=== PATIENT | male | born 1990 | race Caucasian/White ===

== ENCOUNTER 2022-03-24 16:40 | Inpatient (IN) | payer BC ==
[~2022-03-24] VITALS: Ht 180.3 cm; Wt 155.5 kg
[2022-03-24 17:30] LABS: BASO # 0.1 10^3/uL (0.0-0.2); BASO % 0.4 % (0.0-1.0); EOS # 0.1 10^3/uL (0.0-0.5); EOS % 0.2 % (0.0-3.0); HEMATOCRIT 28.7 % (42.0-52.0); HEMOGLOBIN 10.2 g/dl (13.5-17.5); LYMPH # 2.6 10^3/uL (1.5-5.0); LYMPH % 7.2 % (24.0-44.0); MEAN CORPUSCULAR HEMOGLOBIN 35.5 pg (27.0-33.0); MEAN CORPUSCULAR HGB CONC 35.5 g/dl (32.0-36.5); MONO % 5.6 % (2.0-8.0); NEUTROPHILS # 29.6 10^3/uL (1.5-8.5); NEUTROPHILS % 83.3 % (36.0-66.0); PLATELET COUNT, AUTOMATED 198 10^3/uL (150-450); RED BLOOD COUNT 2.87 10^6/uL (4.30-6.10)
[2022-03-24 17:43] LABS: INR 1.39; PROTHROMBIN TIME 17.5 SECONDS (12.7-14.5)
[2022-03-24 17:44] LABS: PARTIAL THROMBOPLASTIN TIME 43.3 SECONDS (25.9-37.0)
[2022-03-24 17:54] LABS: WHITE BLOOD COUNT 35.5 10^3/uL (4.0-10.0)
[2022-03-24 18:02] LABS: ALBUMIN 2.3 GM/DL (3.2-5.2); ALT/SGPT 215 U/L (12-78); BILIRUBIN,DIRECT 9.2 MG/DL (0.0-0.2); BILIRUBIN,TOTAL 10.9 MG/DL (0.2-1.0); BLOOD UREA NITROGEN 22 MG/DL (7-18); CALCIUM LEVEL 8.6 MG/DL (8.5-10.1); CARBON DIOXIDE LEVEL 24 MEQ/L (21-32); CHLORIDE LEVEL 85 MEQ/L (98-107); CREATININE FOR GFR 0.89 MG/DL (0.70-1.30); GLOMERULAR FILTRATION RATE > 60.0 (>60); GLUCOSE, FASTING 122 MG/DL (70-100); LIPASE 313 U/L (73-393); SODIUM LEVEL 122 MEQ/L (136-145); TOTAL PROTEIN 6.4 GM/DL (6.4-8.2)
[2022-03-24] MEDS ORDERED: NS 1,000 ML IV ONE (18:10)
[2022-03-24] MEDS ORDERED: ISOVUE-370 76% 100ML VIAL As Ordered ONE (18:15)
[2022-03-24] MEDS ORDERED: HOME MED LIST COMPLETE! XX SCH (19:20)
[2022-03-24 21:37] LABS: RSV AMPLIFICATION NEGATIVE (NEGATIVE)
[2022-03-24] MEDS ORDERED: LORazepam 2 MG TAB PO PRN (22:20)
[2022-03-24 23:00] VITALS: BP 135/62
[2022-03-24 23:16] LABS: OSMOLALITY SERUM 261 MOSM/KG (275-295)
[2022-03-24] MEDS: NS 1,000 ML IV SCH (23:26)
[2022-03-24] MEDS: THIAMINE 100 MG TAB PO SCH (23:26)
[2022-03-24 23:43] LABS: FERRITIN 2081 NG/ML (26-388); IRON (FE) 89 UG/DL (65-175); MAGNESIUM LEVEL 2.4 MG/DL (1.8-2.4); PERCENT SATURATION 114.1 % (19.7-50.0); TOTAL IRON BINDING CAPACITY 78 UG/DL (250-450)
[2022-03-25] VITALS (7 sets, daily range): BP systolic 111–130; BP diastolic 54–67
[2022-03-25 00:29] LABS: BLOOD UREA NITROGEN 24 MG/DL (7-18); CALCIUM LEVEL 7.7 MG/DL (8.5-10.1); CARBON DIOXIDE LEVEL 26 MEQ/L (21-32); CHLORIDE LEVEL 84 MEQ/L (98-107); CREATININE FOR GFR 0.95 MG/DL (0.70-1.30); GLOMERULAR FILTRATION RATE > 60.0 (>60); GLUCOSE, FASTING 107 MG/DL (70-100); SODIUM LEVEL 121 MEQ/L (136-145)
[2022-03-25] MEDS ORDERED: LACTULOSE 20 GM/30 ML SYRUP UD PO ONE (01:00)
[2022-03-25] MEDS: PANTOPRAZOLE 40MG VIAL IV SCH ×2 (01:23→14:23)
[2022-03-25 02:48] LABS: ACETAMINOPHEN LEVEL < 2.0 UG/ML (10.0-30.0)
[2022-03-25 03:43] LABS: BASO # 0.1 10^3/uL (0.0-0.2); BASO % 0.4 % (0.0-1.0); EOS # 0.1 10^3/uL (0.0-0.5); EOS % 0.4 % (0.0-3.0); HEMATOCRIT 27.1 % (42.0-52.0); HEMOGLOBIN 9.6 g/dl (13.5-17.5); LYMPH % 9.3 % (24.0-44.0); MEAN CORPUSCULAR HEMOGLOBIN 35.6 pg (27.0-33.0); MEAN CORPUSCULAR HGB CONC 35.4 g/dl (32.0-36.5); MEAN CORPUSCULAR VOLUME 100.4 fl (80.0-96.0); MONO % 5.4 % (2.0-8.0); NEUTROPHILS # 26.2 10^3/uL (1.5-8.5); NEUTROPHILS % 81.3 % (36.0-66.0); PLATELET COUNT, AUTOMATED 163 10^3/uL (150-450)
[2022-03-25 03:46] LABS: MONO # 1.7 10^3/uL (0.0-0.8); WHITE BLOOD COUNT 32.2 10^3/uL (4.0-10.0)
[2022-03-25 03:57] LABS: INR 1.43; PROTHROMBIN TIME 17.9 SECONDS (12.7-14.5)
[2022-03-25 03:58] LABS: PARTIAL THROMBOPLASTIN TIME 44.9 SECONDS (25.9-37.0)
[2022-03-25 04:07] LABS: ALBUMIN 1.9 GM/DL (3.2-5.2); ALT/SGPT 190 U/L (12-78); BILIRUBIN,TOTAL 9.4 MG/DL (0.2-1.0); BLOOD UREA NITROGEN 24 MG/DL (7-18); CALCIUM LEVEL 7.9 MG/DL (8.5-10.1); CARBON DIOXIDE LEVEL 28 MEQ/L (21-32); CHLORIDE LEVEL 87 MEQ/L (98-107); CREATININE FOR GFR 0.79 MG/DL (0.70-1.30); GLOMERULAR FILTRATION RATE > 60.0 (>60); GLUCOSE, FASTING 96 MG/DL (70-100); POTASSIUM SERUM 4.8 MEQ/L (3.5-5.1); SODIUM LEVEL 124 MEQ/L (136-145)
[2022-03-25 04:08] LABS: LIPASE 346 U/L (73-393)
[2022-03-25 08:23] LABS: BLOOD UREA NITROGEN 24 MG/DL (7-18); CALCIUM LEVEL 8.4 MG/DL (8.5-10.1); CARBON DIOXIDE LEVEL 27 MEQ/L (21-32); CHLORIDE LEVEL 86 MEQ/L (98-107); CREATININE FOR GFR 0.69 MG/DL (0.70-1.30); GLOMERULAR FILTRATION RATE > 60.0 (>60); GLUCOSE, FASTING 98 MG/DL (70-100); POTASSIUM SERUM 4.5 MEQ/L (3.5-5.1); SODIUM LEVEL 122 MEQ/L (136-145)
[2022-03-25] MEDS: THIAMINE 100 MG TAB PO SCH ×2 (09:45→21:41)
[2022-03-25] MEDS: FOLIC ACID 1 MG TAB PO SCH (09:45)
[2022-03-25] MEDS: MULTIVITAMINS/MINERALS THERAP 1 TAB PO SCH (09:45)
[2022-03-25 10:05] LABS: FOLATE 20.9 NG/ML (>5.4)
[2022-03-25 10:15] LABS: HEPATITIS B SURFACE ANTIGEN NEGATIVE (NEGATIVE)
[2022-03-25 10:43] LABS: HEPATITIS C VIRUS ABY INDEX 0.1 INDEX (<0.8)
[2022-03-25 10:44] LABS: HEPATITIS B CORE ANTIBODY IGM NEGATIVE (NEGATIVE)
[2022-03-25] MEDS: NS 1,000 ML IV SCH (11:44)
[2022-03-25 12:07] LABS: BASO # 0.1 10^3/uL (0.0-0.2); BASO % 0.3 % (0.0-1.0); EOS # 0.1 10^3/uL (0.0-0.5); EOS % 0.2 % (0.0-3.0); HEMATOCRIT 28.9 % (42.0-52.0); HEMOGLOBIN 10.1 g/dl (13.5-17.5); LYMPH # 1.8 10^3/uL (1.5-5.0); LYMPH % 5.5 % (24.0-44.0); MEAN CORPUSCULAR HEMOGLOBIN 35.3 pg (27.0-33.0); MEAN CORPUSCULAR HGB CONC 34.9 g/dl (32.0-36.5); MONO # 1.2 10^3/uL (0.0-0.8); MONO % 3.8 % (2.0-8.0); NEUTROPHILS # 27.7 10^3/uL (1.5-8.5); NEUTROPHILS % 86.3 % (36.0-66.0); PLATELET COUNT, AUTOMATED 177 10^3/uL (150-450); RED BLOOD COUNT 2.86 10^6/uL (4.30-6.10)
[2022-03-25 12:10] LABS: WHITE BLOOD COUNT 32.1 10^3/uL (4.0-10.0)
[2022-03-25 12:24] LABS: INR 1.43; PROTHROMBIN TIME 17.9 SECONDS (12.7-14.5)
[2022-03-25 12:25] LABS: PARTIAL THROMBOPLASTIN TIME 41.7 SECONDS (25.9-37.0)
[2022-03-25 12:26] LABS: BLOOD UREA NITROGEN 24 MG/DL (7-18); CALCIUM LEVEL 8.6 MG/DL (8.5-10.1); CARBON DIOXIDE LEVEL 29 MEQ/L (21-32); CHLORIDE LEVEL 86 MEQ/L (98-107); CREATININE FOR GFR 0.72 MG/DL (0.70-1.30); GLOMERULAR FILTRATION RATE > 60.0 (>60); GLUCOSE, FASTING 88 MG/DL (70-100); POTASSIUM SERUM 4.8 MEQ/L (3.5-5.1); SODIUM LEVEL 124 MEQ/L (136-145)
[2022-03-25 12:35] LABS: ALBUMIN 2.1 GM/DL (3.2-5.2); ALT/SGPT 210 U/L (12-78); BILIRUBIN,TOTAL 10.4 MG/DL (0.2-1.0); BLOOD UREA NITROGEN 24 MG/DL (7-18); CALCIUM LEVEL 8.8 MG/DL (8.5-10.1); CARBON DIOXIDE LEVEL 30 MEQ/L (21-32); CHLORIDE LEVEL 86 MEQ/L (98-107); CREATININE FOR GFR 0.68 MG/DL (0.70-1.30); GLOMERULAR FILTRATION RATE > 60.0 (>60); GLUCOSE, FASTING 91 MG/DL (70-100); SODIUM LEVEL 125 MEQ/L (136-145); TOTAL PROTEIN 5.7 GM/DL (6.4-8.2)
[2022-03-25 13:06] LABS: MONO SCRN NEGATIVE (NEGATIVE)
[2022-03-25 13:24] LABS: HIV 1&2 SCREEN CENTAUR NEGATIVE (NEGATIVE)
[2022-03-25 17:24] LABS: ALT/SGPT 198 U/L (12-78); BILIRUBIN,TOTAL 9.4 MG/DL (0.2-1.0); BLOOD UREA NITROGEN 24 MG/DL (7-18); CALCIUM LEVEL 7.8 MG/DL (8.5-10.1); CARBON DIOXIDE LEVEL 28 MEQ/L (21-32); CHLORIDE LEVEL 86 MEQ/L (98-107); CHOLESTEROL LEVEL 111 MG/DL (<200); CREATININE FOR GFR 0.85 MG/DL (0.70-1.30); GLOMERULAR FILTRATION RATE > 60.0 (>60); GLUCOSE, FASTING 116 MG/DL (70-100); HDL CHOLESTEROL 8 MG/DL (>40); POTASSIUM SERUM 4.9 MEQ/L (3.5-5.1); SODIUM LEVEL 123 MEQ/L (136-145); TRIGLYCERIDES LEVEL 204 MG/DL (<150)
[2022-03-25 17:25] LABS: ALBUMIN 1.9 GM/DL (3.2-5.2); CHOLESTEROL RISK RATIO 13.875 (<5); LDL CHOLESTEROL 62 MG/DL (<100); NON-HDL-C 103 MG/DL; TOTAL PROTEIN 5.9 GM/DL (6.4-8.2)
[2022-03-26] MEDS: NS 1,000 ML IV SCH (00:23)
[2022-03-26] MEDS: PANTOPRAZOLE 40MG VIAL IV SCH ×2 (02:06→14:13)
[2022-03-26 03:45] LABS: BASO # 0.1 10^3/uL (0.0-0.2); BASO % 0.4 % (0.0-1.0); EOS # 0.2 10^3/uL (0.0-0.5); EOS % 0.5 % (0.0-3.0); HEMATOCRIT 25.7 % (42.0-52.0); HEMOGLOBIN 9.2 g/dl (13.5-17.5); LYMPH # 3.2 10^3/uL (1.5-5.0); LYMPH % 8.7 % (24.0-44.0); MEAN CORPUSCULAR HEMOGLOBIN 35.7 pg (27.0-33.0); MEAN CORPUSCULAR HGB CONC 35.8 g/dl (32.0-36.5); MEAN CORPUSCULAR VOLUME 99.6 fl (80.0-96.0); MONO % 5.5 % (2.0-8.0); NEUTROPHILS % 81.7 % (36.0-66.0); PLATELET COUNT, AUTOMATED 170 10^3/uL (150-450); RED BLOOD COUNT 2.58 10^6/uL (4.30-6.10)
[2022-03-26 03:46] VITALS: BP 116/60
[2022-03-26 03:51] LABS: WHITE BLOOD COUNT 36.7 10^3/uL (4.0-10.0)
[2022-03-26 04:09] LABS: ALBUMIN 1.9 GM/DL (3.2-5.2); ALT/SGPT 191 U/L (12-78); BILIRUBIN,TOTAL 9.3 MG/DL (0.2-1.0); BLOOD UREA NITROGEN 22 MG/DL (7-18); CALCIUM LEVEL 7.5 MG/DL (8.5-10.1); CARBON DIOXIDE LEVEL 28 MEQ/L (21-32); CHLORIDE LEVEL 87 MEQ/L (98-107); CREATININE FOR GFR 0.69 MG/DL (0.70-1.30); GLOMERULAR FILTRATION RATE > 60.0 (>60); GLUCOSE, FASTING 106 MG/DL (70-100); MAGNESIUM LEVEL 2.7 MG/DL (1.8-2.4); POTASSIUM SERUM 4.4 MEQ/L (3.5-5.1); SODIUM LEVEL 123 MEQ/L (136-145); TOTAL PROTEIN 5.2 GM/DL (6.4-8.2)
[2022-03-26 07:15] VITALS: BP 110/53
[2022-03-26 08:02] LABS: BILIRUBIN,DIRECT 8.2 MG/DL (0.0-0.2)
[2022-03-26] MEDS: HEPARIN SOD (PORCINE) 5000UNITS/ML 1ML VIAL/SYRINGE SQ SCH ×3 (08:55→21:07)
[2022-03-26] MEDS: FOLIC ACID 1 MG TAB PO SCH (08:56)
[2022-03-26] MEDS: predniSONE 20 MG TAB PO SCH (08:56)
[2022-03-26] MEDS: MULTIVITAMINS/MINERALS THERAP 1 TAB PO SCH (08:56)
[2022-03-26] MEDS: THIAMINE 100 MG TAB PO SCH ×2 (08:56→21:07)
[2022-03-26 14:08] LABS: EBV VIRAL CAPSID AG IgM <36.0 U/mL (0.0-35.9)
[2022-03-26 15:10] LABS: VITAMIN B12 LEVEL > 2000 PG/ML (247-911)
[2022-03-26 15:49] VITALS: BP 117/61
[2022-03-26] MEDS ORDERED: LACTULOSE 20 GM/30 ML SYRUP UD PO ONE (18:40)
[2022-03-26 20:00] VITALS: BP 115/56
[2022-03-26 22:00] VITALS: BP 115/56
[2022-03-27] VITALS (7 sets, daily range): BP systolic 116–133; BP diastolic 56–76
[2022-03-27] MEDS: PANTOPRAZOLE 40MG VIAL IV SCH ×2 (01:20→15:01)
[2022-03-27 06:08] LABS: HEMATOCRIT 26.7 % (42.0-52.0); HEMOGLOBIN 9.3 g/dl (13.5-17.5); MEAN CORPUSCULAR HEMOGLOBIN 35.1 pg (27.0-33.0); MEAN CORPUSCULAR HGB CONC 34.8 g/dl (32.0-36.5); MEAN CORPUSCULAR VOLUME 100.8 fl (80.0-96.0); PLATELET COUNT, AUTOMATED 200 10^3/uL (150-450); RED BLOOD COUNT 2.65 10^6/uL (4.30-6.10)
[2022-03-27 06:23] LABS: WHITE BLOOD COUNT 35.3 10^3/uL (4.0-10.0)
[2022-03-27] MEDS: HEPARIN SOD (PORCINE) 5000UNITS/ML 1ML VIAL/SYRINGE SQ SCH (06:27)
[2022-03-27 06:28] LABS: ALBUMIN 1.9 GM/DL (3.2-5.2); ALT/SGPT 199 U/L (12-78); BILIRUBIN,TOTAL 8.2 MG/DL (0.2-1.0); BLOOD UREA NITROGEN 22 MG/DL (7-18); CALCIUM LEVEL 7.9 MG/DL (8.5-10.1); CARBON DIOXIDE LEVEL 29 MEQ/L (21-32); CHLORIDE LEVEL 87 MEQ/L (98-107); CREATININE FOR GFR 0.85 MG/DL (0.70-1.30); GLOMERULAR FILTRATION RATE > 60.0 (>60); GLUCOSE, FASTING 99 MG/DL (70-100); POTASSIUM SERUM 4.3 MEQ/L (3.5-5.1); SODIUM LEVEL 122 MEQ/L (136-145); TOTAL PROTEIN 5.9 GM/DL (6.4-8.2)
[2022-03-27 06:43] LABS: ANISOCYTOSIS 2+; BASOPHILS 1 % (0-1); LYMPHOCYTES 10 % (16-44); METAMYELOCYTES 1 % (0-0); MONOCYTES 2 % (0-5); NEUTROPHILS 80 % (28-66); PLATELET ESTIMATE NORMAL (NORMAL)
[2022-03-27 08:24] LABS: BILIRUBIN,DIRECT 6.9 MG/DL (0.0-0.2)
[2022-03-27] MEDS: predniSONE 20 MG TAB PO SCH (09:43)
[2022-03-27] MEDS: FOLIC ACID 1 MG TAB PO SCH (09:43)
[2022-03-27] MEDS: THIAMINE 100 MG TAB PO SCH (09:43)
[2022-03-27] MEDS: MULTIVITAMINS/MINERALS THERAP 1 TAB PO SCH (09:43)
[2022-03-27] MEDS ORDERED: PROHANCE 279.3MG/ML 5ML VIAL As Ordered ONE (10:53)
[2022-03-27] MEDS ORDERED: PROHANCE 279.3MG/ML 15ML VIAL As Ordered ONE (10:53)
[2022-03-27] MEDS ORDERED: HEPARIN DRIP 25,000 UNITS in IV 1 EA IV SCH (11:35)
[2022-03-27] MEDS ORDERED: HEPARIN SOD (PORCINE) 5000UNITS/ML 1ML VIAL/SYRINGE IV PRN ×2 (11:35→11:50)
[2022-03-27 12:33] LABS: HEMOGLOBIN A1c 5.2 %
[2022-03-27 12:45] LABS: D-DIMER QUANT 2380.52 ng/ml (<500)
[2022-03-27 13:29] LABS: PARTIAL THROMBOPLASTIN TIME 44.9 SECONDS (25.9-37.0)
[2022-03-27] MEDS: HEPARIN DRIP 25,000 UNITS in IV 1 EA IV SCH (14:00)
[2022-03-28] VITALS: BP 121/58
[2022-03-28] MEDS: PANTOPRAZOLE 40MG VIAL IV SCH ×2 (03:42→14:06)
[2022-03-28] MEDS: NICOTINE 14 MG/24 HR TRANSDERMAL TD PRN (03:42)
[2022-03-28 04:00] VITALS: BP 119/56
[2022-03-28 04:31] LABS: INR 1.49; PROTHROMBIN TIME 18.4 SECONDS (12.7-14.5)
[2022-03-28 04:32] LABS: PARTIAL THROMBOPLASTIN TIME 53.8 SECONDS (25.9-37.0)
[2022-03-28] MEDS: HEPARIN DRIP 25,000 UNITS in IV 1 EA IV SCH ×2 (07:27→23:21)
[2022-03-28 08:00] VITALS: BP 116/58
[2022-03-28] MEDS: predniSONE 20 MG TAB PO SCH (08:04)
[2022-03-28] MEDS: MULTIVITAMINS/MINERALS THERAP 1 TAB PO SCH (08:05)
[2022-03-28] MEDS: FOLIC ACID 1 MG TAB PO SCH (08:05)
[2022-03-28 08:37] LABS: HEMATOCRIT 28.9 % (42.0-52.0); HEMOGLOBIN 9.9 g/dl (13.5-17.5); MEAN CORPUSCULAR HEMOGLOBIN 35.4 pg (27.0-33.0); MEAN CORPUSCULAR HGB CONC 34.3 g/dl (32.0-36.5); MEAN CORPUSCULAR VOLUME 103.2 fl (80.0-96.0); PLATELET COUNT, AUTOMATED 253 10^3/uL (150-450)
[2022-03-28 08:38] LABS: ALBUMIN 2.1 GM/DL (3.2-5.2); ALT/SGPT 229 U/L (12-78); BILIRUBIN,TOTAL 8.4 MG/DL (0.2-1.0); BLOOD UREA NITROGEN 24 MG/DL (7-18); CALCIUM LEVEL 8.1 MG/DL (8.5-10.1); CARBON DIOXIDE LEVEL 25 MEQ/L (21-32); CHLORIDE LEVEL 91 MEQ/L (98-107); CREATININE FOR GFR 0.75 MG/DL (0.70-1.30); GLOMERULAR FILTRATION RATE > 60.0 (>60); GLUCOSE, FASTING 111 MG/DL (70-100); MAGNESIUM LEVEL 2.8 MG/DL (1.8-2.4); POTASSIUM SERUM 4.1 MEQ/L (3.5-5.1); SODIUM LEVEL 125 MEQ/L (136-145)
[2022-03-28 08:40] LABS: WHITE BLOOD COUNT 39.8 10^3/uL (4.0-10.0)
[2022-03-28 09:12] LABS: ANISOCYTOSIS 2+; EOSINOPHILS 1 % (0-3); LYMPHOCYTES 11 % (16-44); MONOCYTES 3 % (0-5); MYELOCYTES 1 % (0-0); NEUTROPHILS 82 % (28-66); PLATELET ESTIMATE NORMAL (NORMAL)
[2022-03-28 11:43] VITALS: BP 126/57
[2022-03-28 11:44] LABS: INR 1.58; PROTHROMBIN TIME 19.3 SECONDS (12.7-14.5)
[2022-03-28] MEDS: cefTRIAXone SOD 2 GM in D5W MINI-BAG PLUS 50 ML IV SCH (12:18)
[2022-03-28 15:42] VITALS: BP 123/56
[2022-03-28 20:00] VITALS: BP 120/55
[2022-03-29] VITALS: BP 119/57
[2022-03-29 05:23] VITALS: BP 124/55
[2022-03-29] MEDS: PANTOPRAZOLE 40MG VIAL IV SCH ×2 (05:33→14:46)
[2022-03-29] MEDS: NICOTINE 14 MG/24 HR TRANSDERMAL TD PRN (05:33)
[2022-03-29 07:57] LABS: HEMATOCRIT 25.5 % (42.0-52.0); HEMOGLOBIN 8.9 g/dl (13.5-17.5); MEAN CORPUSCULAR HEMOGLOBIN 35.7 pg (27.0-33.0); MEAN CORPUSCULAR HGB CONC 34.9 g/dl (32.0-36.5); MEAN CORPUSCULAR VOLUME 102.4 fl (80.0-96.0); PLATELET COUNT, AUTOMATED 274 10^3/uL (150-450); RED BLOOD COUNT 2.49 10^6/uL (4.30-6.10)
[2022-03-29 08:03] LABS: WHITE BLOOD COUNT 33.4 10^3/uL (4.0-10.0)
[2022-03-29 08:07] LABS: INR 1.65; PROTHROMBIN TIME 19.9 SECONDS (12.7-14.5)
[2022-03-29 08:09] LABS: PARTIAL THROMBOPLASTIN TIME 73.3 SECONDS (25.9-37.0)
[2022-03-29 08:13] VITALS: BP 121/56
[2022-03-29 08:31] LABS: ATYPICAL LYMPH 1 % (0-5); EOSINOPHILS 2 % (0-3); LYMPHOCYTES 7 % (16-44); MONOCYTES 7 % (0-5); MYELOCYTES 1 % (0-0); NEUTROPHILS 77 % (28-66)
[2022-03-29 08:32] LABS: ALBUMIN 1.8 GM/DL (3.2-5.2); ALT/SGPT 206 U/L (12-78); BILIRUBIN,TOTAL 6.5 MG/DL (0.2-1.0); BLOOD UREA NITROGEN 27 MG/DL (7-18); CALCIUM LEVEL 7.9 MG/DL (8.5-10.1); CARBON DIOXIDE LEVEL 27 MEQ/L (21-32); CHLORIDE LEVEL 94 MEQ/L (98-107); CREATININE FOR GFR 0.74 MG/DL (0.70-1.30); GLOMERULAR FILTRATION RATE > 60.0 (>60); GLUCOSE, FASTING 103 MG/DL (70-100); MAGNESIUM LEVEL 2.9 MG/DL (1.8-2.4); POTASSIUM SERUM 3.8 MEQ/L (3.5-5.1); SODIUM LEVEL 129 MEQ/L (136-145); TOTAL PROTEIN 5.2 GM/DL (6.4-8.2)
[2022-03-29 08:33] LABS: STOMATOCYTES 3+; TARGET CELLS 1+
[2022-03-29 08:34] LABS: PLATELET ESTIMATE NORMAL (NORMAL)
[2022-03-29] MEDS: FOLIC ACID 1 MG TAB PO SCH (08:56)
[2022-03-29] MEDS: predniSONE 20 MG TAB PO SCH (08:57)
[2022-03-29] MEDS: MULTIVITAMINS/MINERALS THERAP 1 TAB PO SCH (08:57)
[2022-03-29 11:19] LABS: BILIRUBIN,DIRECT 5.9 MG/DL (0.0-0.2)
[2022-03-29] MEDS: cefTRIAXone SOD 2 GM in D5W MINI-BAG PLUS 50 ML IV SCH (11:20)
[2022-03-29 12:11] VITALS: BP 118/57
[2022-03-29 13:12] LABS: HEMOGLOBIN 9.2 g/dl (13.5-17.5)
[2022-03-29] MEDS: HEPARIN DRIP 25,000 UNITS in IV 1 EA IV SCH (14:56)
[2022-03-29 16:26] VITALS: BP 133/60
[2022-03-29 20:00] VITALS: BP 128/62
[2022-03-30] VITALS (7 sets, daily range): BP systolic 111–123; BP diastolic 53–68
[2022-03-30] MEDS: PANTOPRAZOLE 40MG VIAL IV SCH ×2 (02:39→13:23)
[2022-03-30 06:29] LABS: BASO # 0.1 10^3/uL (0.0-0.2); BASO % 0.2 % (0.0-1.0); EOS # 0.2 10^3/uL (0.0-0.5); EOS % 0.7 % (0.0-3.0); HEMATOCRIT 25.3 % (42.0-52.0); HEMOGLOBIN 8.7 g/dl (13.5-17.5); LYMPH # 3.6 10^3/uL (1.5-5.0); LYMPH % 11.1 % (24.0-44.0); MEAN CORPUSCULAR HEMOGLOBIN 34.5 pg (27.0-33.0); MEAN CORPUSCULAR HGB CONC 34.4 g/dl (32.0-36.5); MEAN CORPUSCULAR VOLUME 100.4 fl (80.0-96.0); MONO % 5.1 % (2.0-8.0); NEUTROPHILS # 25.6 10^3/uL (1.5-8.5); NEUTROPHILS % 79.5 % (36.0-66.0); PLATELET COUNT, AUTOMATED 336 10^3/uL (150-450); RED BLOOD COUNT 2.52 10^6/uL (4.30-6.10)
[2022-03-30] MEDS: HEPARIN DRIP 25,000 UNITS in IV 1 EA IV SCH ×2 (06:29→22:55)
[2022-03-30 06:52] LABS: ALBUMIN 1.8 GM/DL (3.2-5.2); ALT/SGPT 207 U/L (12-78); BILIRUBIN,TOTAL 5.9 MG/DL (0.2-1.0); BLOOD UREA NITROGEN 24 MG/DL (7-18); CALCIUM LEVEL 7.8 MG/DL (8.5-10.1); CARBON DIOXIDE LEVEL 26 MEQ/L (21-32); CHLORIDE LEVEL 96 MEQ/L (98-107); CREATININE FOR GFR 0.67 MG/DL (0.70-1.30); GLOMERULAR FILTRATION RATE > 60.0 (>60); GLUCOSE, FASTING 100 MG/DL (70-100); MAGNESIUM LEVEL 2.7 MG/DL (1.8-2.4); POTASSIUM SERUM 3.9 MEQ/L (3.5-5.1); SODIUM LEVEL 131 MEQ/L (136-145); TOTAL PROTEIN 5.2 GM/DL (6.4-8.2)
[2022-03-30 07:03] LABS: MONO # 1.7 10^3/uL (0.0-0.8); WHITE BLOOD COUNT 32.3 10^3/uL (4.0-10.0)
[2022-03-30 08:10] LABS: CMV QUANT DNA PCR, URINE Negative copies/mL (Negative)
[2022-03-30] MEDS: FOLIC ACID 1 MG TAB PO SCH (08:52)
[2022-03-30] MEDS: MULTIVITAMINS/MINERALS THERAP 1 TAB PO SCH (08:52)
[2022-03-30] MEDS: predniSONE 20 MG TAB PO SCH (08:52)
[2022-03-30] MEDS: cefTRIAXone SOD 2 GM in D5W MINI-BAG PLUS 50 ML IV SCH (11:23)
[2022-03-30 14:09] LABS: ANTI-MITOCHONDRIAL ANTIBODY <20.0 Units (0.0-20.0)
[2022-03-31] VITALS: BP 117/57
[2022-03-31] MEDS: PANTOPRAZOLE 40MG VIAL IV SCH ×2 (02:00→14:33)
[2022-03-31 04:00] VITALS: BP 125/60
[2022-03-31 06:01] LABS: BASO # 0.1 10^3/uL (0.0-0.2); BASO % 0.2 % (0.0-1.0); EOS # 0.3 10^3/uL (0.0-0.5); EOS % 0.9 % (0.0-3.0); HEMATOCRIT 27.2 % (42.0-52.0); HEMOGLOBIN 9.2 g/dl (13.5-17.5); LYMPH # 3.7 10^3/uL (1.5-5.0); LYMPH % 11.6 % (24.0-44.0); MEAN CORPUSCULAR HEMOGLOBIN 35.5 pg (27.0-33.0); MEAN CORPUSCULAR HGB CONC 33.8 g/dl (32.0-36.5); MONO % 5.2 % (2.0-8.0); NEUTROPHILS # 25.2 10^3/uL (1.5-8.5); NEUTROPHILS % 78.9 % (36.0-66.0); PLATELET COUNT, AUTOMATED 365 10^3/uL (150-450); RED BLOOD COUNT 2.59 10^6/uL (4.30-6.10)
[2022-03-31 06:10] LABS: MONO # 1.7 10^3/uL (0.0-0.8); WHITE BLOOD COUNT 31.9 10^3/uL (4.0-10.0)
[2022-03-31 06:29] LABS: ALBUMIN 1.9 GM/DL (3.2-5.2); ALT/SGPT 219 U/L (12-78); BILIRUBIN,TOTAL 5.7 MG/DL (0.2-1.0); BLOOD UREA NITROGEN 20 MG/DL (7-18); CALCIUM LEVEL 7.8 MG/DL (8.5-10.1); CARBON DIOXIDE LEVEL 29 MEQ/L (21-32); CHLORIDE LEVEL 99 MEQ/L (98-107); CREATININE FOR GFR 0.65 MG/DL (0.70-1.30); GLOMERULAR FILTRATION RATE > 60.0 (>60); GLUCOSE, FASTING 106 MG/DL (70-100); MAGNESIUM LEVEL 2.7 MG/DL (1.8-2.4); POTASSIUM SERUM 3.8 MEQ/L (3.5-5.1); SODIUM LEVEL 135 MEQ/L (136-145); TOTAL PROTEIN 5.4 GM/DL (6.4-8.2)
[2022-03-31 08:00] VITALS: BP 115/54
[2022-03-31] MEDS: MULTIVITAMINS/MINERALS THERAP 1 TAB PO SCH (08:44)
[2022-03-31] MEDS: FOLIC ACID 1 MG TAB PO SCH (08:44)
[2022-03-31] MEDS: predniSONE 20 MG TAB PO SCH (08:44)
[2022-03-31] MEDS: HEPARIN DRIP 25,000 UNITS in IV 1 EA IV SCH (10:35)
[2022-03-31] MEDS: cefTRIAXone SOD 2 GM in D5W MINI-BAG PLUS 50 ML IV SCH (11:42)
[2022-03-31 16:00] VITALS: BP 124/59
[2022-03-31 20:00] VITALS: BP 121/56
[2022-03-31] MEDS: APIXABAN 5 MG TAB (ELIQUIS) PO SCH (20:27)
[2022-04-01] MEDS: PANTOPRAZOLE 40MG VIAL IV SCH ×2 (01:35→13:50)
[2022-04-01 05:40] LABS: BASO % 0.1 % (0.0-1.0); EOS # 0.4 10^3/uL (0.0-0.5); EOS % 1.3 % (0.0-3.0); HEMOGLOBIN 9.3 g/dl (13.5-17.5); LYMPH # 3.3 10^3/uL (1.5-5.0); LYMPH % 11.7 % (24.0-44.0); MEAN CORPUSCULAR HEMOGLOBIN 34.6 pg (27.0-33.0); MEAN CORPUSCULAR HGB CONC 33.2 g/dl (32.0-36.5); MEAN CORPUSCULAR VOLUME 104.1 fl (80.0-96.0); MONO # 1.2 10^3/uL (0.0-0.8); MONO % 4.3 % (2.0-8.0); NEUTROPHILS # 22.9 10^3/uL (1.5-8.5); NEUTROPHILS % 80.8 % (36.0-66.0); PLATELET COUNT, AUTOMATED 395 10^3/uL (150-450); RED BLOOD COUNT 2.69 10^6/uL (4.30-6.10); WHITE BLOOD COUNT 28.3 10^3/uL (4.0-10.0)
[2022-04-01 06:00] VITALS: BP 121/57
[2022-04-01 06:04] LABS: ALBUMIN 1.8 GM/DL (3.2-5.2); ALT/SGPT 209 U/L (12-78); BILIRUBIN,TOTAL 5.4 MG/DL (0.2-1.0); BLOOD UREA NITROGEN 16 MG/DL (7-18); CALCIUM LEVEL 8.1 MG/DL (8.5-10.1); CARBON DIOXIDE LEVEL 27 MEQ/L (21-32); CHLORIDE LEVEL 97 MEQ/L (98-107); GLOMERULAR FILTRATION RATE > 60.0 (>60); GLUCOSE, FASTING 100 MG/DL (70-100); MAGNESIUM LEVEL 2.6 MG/DL (1.8-2.4); POTASSIUM SERUM 3.7 MEQ/L (3.5-5.1); SODIUM LEVEL 131 MEQ/L (136-145); TOTAL PROTEIN 5.9 GM/DL (6.4-8.2)
[2022-04-01] MEDS ORDERED: ELIQ5TAB PO (07:54)
[2022-04-01 07:57] VITALS: BP 105/53
[2022-04-01] MEDS: predniSONE 20 MG TAB PO SCH (08:03)
[2022-04-01] MEDS: FOLIC ACID 1 MG TAB PO SCH (08:03)
[2022-04-01] MEDS: APIXABAN 5 MG TAB (ELIQUIS) PO SCH (08:03)
[2022-04-01] MEDS: MULTIVITAMINS/MINERALS THERAP 1 TAB PO SCH (08:03)
[2022-04-01] MEDS ORDERED: SIMETHICONE 80MG CHEW TAB PO PRN (08:35)
[2022-04-01 09:43] LABS: DRVV SCREEN 50.1 SEC
[2022-04-01 09:45] LABS: PTT LUPUS TYPE ANTICOAG SCREEN 1.3 (0-1.2)
[2022-04-01 10:07] LABS: DRVV CONFIRM 46.7 SEC; LUPUS CONFIRM RATIO 1.2
[2022-04-01 10:08] LABS: NORMALIZED RATIO 1.08 (0.00-1.20)
[2022-04-01] MEDS ORDERED: SIME80TA16 PO (11:18)
[2022-04-01] MEDS ORDERED: FOLI1TAB11 PO (11:18)
[2022-04-01] MEDS ORDERED: VITMTA PO (11:18)
[2022-04-01] MEDS ORDERED: PANT40TA29 PO (11:18)
[2022-04-01 15:27] VITALS: BP 113/59
[2022-04-02 08:10] LABS: ANTI THROMBIN 3 ANTIGEN IMMUNO 55 % (72-124); ANTI THROMBIN 3 FUNCT ACTIVITY 68 % (75-135); BETA-2 GLYCOPROTEIN I ABY IGA <9 (0-25); BETA-2 GLYCOPROTEIN I ABY IGG <9 (0-20); BETA-2 GLYCOPROTEIN I ABY IGM <9 (0-32); CARDIOLIPIN IGA ANTIBODY <9 APL U/mL (0-11); CARDIOLIPIN IGG ANTIBODY <9 GPL U/mL (0-14); CARDIOLIPIN IGM ANTIBODY 15 MPL U/mL (0-12); PROTEIN C FUNCTIONAL ACTIVITY 63 % (73-180); PROTEIN S FUNCTIONAL ACTIVITY 104 % (63-140)
== END 2022-04-01 18:19 | disposition home or self-care (01) | DRG 280 ==
LOC: M ED 16:40 → M ED INP 22:19 → ENRESERV 22:44 → M PCU 23:01
PROVIDERS: ADMIT Internal Medicine; ATTEND Family Medicine
DX: K70.10 Alcoholic hepatitis without ascites (principal); I81 Portal vein thrombosis; E87.2 Acidosis; R65.10 Systemic inflammatory response syndrome (SIRS) of non-infectious origin without acute organ dysfunction; K76.6 Portal hypertension; E87.1 Hypo-osmolality and hyponatremia; Z68.42 Body mass index [BMI] 45.0-49.9, adult; D51.3 Other dietary vitamin B12 deficiency anemia; R16.1 Splenomegaly, not elsewhere classified; E66.9 Obesity, unspecified; K59.00 Constipation, unspecified; D72.829 Elevated white blood cell count, unspecified; Z20.822 Contact with and (suspected) exposure to COVID-19; K76.0 Fatty (change of) liver, not elsewhere classified; F10.10 Alcohol abuse, uncomplicated

== ENCOUNTER → 2022-04-19 | Outpatient (REF) | payer BC ==
[~2022-04-19] MED LIST: ELIQ5TAB PO; FOLI1TAB11 PO; PANT40TA29 PO; SIME80TA16 PO; VITMTA PO
[2022-04-19 12:45] LABS: INR 1.93; PROTHROMBIN TIME 22.5 SECONDS (12.7-14.5)
[2022-04-19 19:24] LABS: BASOPHILS 2 % (0-1); LYMPHOCYTES 4 % (16-44); MONOCYTES 6 % (0-5); NEUTROPHILS 85 % (28-66)
[2022-04-19 19:28] LABS: ANISOCYTOSIS 2+; OVALOCYTES 2+; PLATELET ESTIMATE NORMAL (NORMAL); POIKILOCYTOSIS 2+
== END ==
LOC: M LAB REF 12:09
PROVIDERS: ATTEND Internal Medicine
DX: Z51.81 Encounter for therapeutic drug level monitoring (principal); D72.9 Disorder of white blood cells, unspecified

== ENCOUNTER → 2022-05-10 | Outpatient (CLI) | payer BC | LOC: M RAD 07:45 | PROVIDERS: ATTEND Internal Medicine Gastroenterology | DX: K70.9 Alcoholic liver disease, unspecified (principal); I81 Portal vein thrombosis ==

== ENCOUNTER 2023-03-31 09:58 | Inpatient (IN) | payer BC ==
[~2023-03-31] VITALS: Ht 180.3 cm; Wt 120.8 kg
[~2023-03-31 09:58] MED LIST changes: +B-10TAB2 PO; +CVS1CHW13 PO; +L. A1CAP PO; +LASI20TA3 PO; +SPIR-10 PO; +TRAZ-186 PO; +TRAZ-252; +VITA200048 PO
[2023-03-31] MEDS ORDERED: NS 1,000 ML IV ONE (10:20)
[2023-03-31] MEDS ORDERED: VITMTA PO (10:53)
[2023-03-31] MEDS ORDERED: HOME MED LIST COMPLETE! XX SCH (11:00)
[2023-03-31 11:35] LABS: RSV AMPLIFICATION NEGATIVE (NEGATIVE)
[2023-03-31 12:12] LABS: BASO % 0.5 % (0.0-1.0); EOS # 0.1 10^3/uL (0.0-0.5); EOS % 0.8 % (0.0-3.0); HEMOGLOBIN 12.3 g/dl (13.5-17.5); LYMPH # 0.8 10^3/uL (1.5-5.0); LYMPH % 10.5 % (24.0-44.0); MEAN CORPUSCULAR HEMOGLOBIN 33.8 pg (27.0-33.0); MEAN CORPUSCULAR HGB CONC 34.2 g/dl (32.0-36.5); MEAN CORPUSCULAR VOLUME 98.9 fl (80.0-96.0); MONO # 0.6 10^3/uL (0.0-0.8); MONO % 8.4 % (2.0-8.0); NEUTROPHILS % 79.3 % (36.0-66.0); RED BLOOD COUNT 3.64 10^6/uL (4.30-6.10); WHITE BLOOD COUNT 7.6 10^3/uL (4.0-10.0)
[2023-03-31 12:31] LABS: INR 1.54; PROTHROMBIN TIME 18.8 SECONDS (12.5-14.5)
[2023-03-31 12:32] LABS: PARTIAL THROMBOPLASTIN TIME 35.4 SECONDS (24.8-34.2)
[2023-03-31 12:42] LABS: LIPASE 245 U/L (12-53)
[2023-03-31 12:44] LABS: PLATELET COUNT, AUTOMATED 75 10^3/uL (150-450)
[2023-03-31 12:48] LABS: FERRITIN 868.8 NG/ML (10.5-307.3)
[2023-03-31 12:50] LABS: ALBUMIN 3.3 G/DL (3.2-5.2); ALKALINE PHOSPHATASE 182 U/L (46-116); ALT/SGPT 79 U/L (7.0-40); AST/SGOT 191 U/L (<34); BILIRUBIN,DIRECT 9.5 MG/DL (<0.4); BILIRUBIN,TOTAL 12.8 MG/DL (0.3-1.2); BLOOD UREA NITROGEN 7 MG/DL (9-23); CALCIUM LEVEL 9.5 MG/DL (8.5-10.1); CARBON DIOXIDE LEVEL 30 MMOL/L (20-31); CHLORIDE LEVEL 91 MMOL/L (98-107); CREATININE FOR GFR 0.63 MG/DL (0.70-1.30); GLOMERULAR FILTRATION RATE > 60.0 (>60); GLUCOSE, FASTING 110 MG/DL (60-100); POTASSIUM SERUM 3.1 MMOL/L (3.5-5.1); SODIUM LEVEL 129 MMOL/L (136-145)
[2023-03-31] MEDS ORDERED: ISOVUE-370 76% 100ML VIAL As Ordered ONE (13:13)
[2023-03-31] MEDS ORDERED: POTASSIUM CHLORIDE 10MEQ SR TABLET PO ONE (14:50)
[2023-03-31] MEDS ORDERED: NICOTINE 21MG/24HR 1 EA TRANSDERMAL TD STA (20:01)
[2023-03-31 20:43] LABS: ETHYL ALCOHOL (ETHANOL) < 0.003 % (0.000-0.010)
[2023-03-31] MEDS: NS 1,000 ML IV SCH (21:31)
[2023-03-31 21:33] LABS: TRIGLYCERIDES LEVEL 152 MG/DL (<150)
[2023-03-31] MEDS ORDERED: ONDANSETRON 4MG 2ML VIAL IV PRN (21:55)
[2023-03-31] MEDS ORDERED: HYDROMORPHONE HCL 0.5 MG/ 0.5 ML SYRINGE IV PRN (21:55)
[2023-03-31] MEDS ORDERED: LACTULOSE 20GM/30ML SYRUP UDC PO ONE (22:00)
[2023-03-31 23:06] LABS: BLOOD UREA NITROGEN 8 MG/DL (9-23); CALCIUM LEVEL 8.7 MG/DL (8.5-10.1); CARBON DIOXIDE LEVEL 28 MMOL/L (20-31); CHLORIDE LEVEL 94 MMOL/L (98-107); CREATININE FOR GFR 0.53 MG/DL (0.70-1.30); GLOMERULAR FILTRATION RATE > 60.0 (>60); GLUCOSE, FASTING 112 MG/DL (60-100); POTASSIUM SERUM 3.7 MMOL/L (3.5-5.1); SODIUM LEVEL 130 MMOL/L (136-145)
[2023-03-31 23:20] VITALS: BP 157/100
[2023-04-01 01:06] VITALS: BP 136/82
[2023-04-01 05:32] LABS: BASO % 0.4 % (0.0-1.0); EOS # 0.1 10^3/uL (0.0-0.5); EOS % 1.1 % (0.0-3.0); HEMATOCRIT 35.4 % (42.0-52.0); HEMOGLOBIN 12.3 g/dl (13.5-17.5); LYMPH # 0.9 10^3/uL (1.5-5.0); LYMPH % 9.9 % (24.0-44.0); MEAN CORPUSCULAR HEMOGLOBIN 34.2 pg (27.0-33.0); MEAN CORPUSCULAR HGB CONC 34.7 g/dl (32.0-36.5); MEAN CORPUSCULAR VOLUME 98.3 fl (80.0-96.0); MONO # 0.8 10^3/uL (0.0-0.8); NEUTROPHILS # 7.2 10^3/uL (1.5-8.5); NEUTROPHILS % 79.2 % (36.0-66.0); PLATELET COUNT, AUTOMATED 98 10^3/uL (150-450); WHITE BLOOD COUNT 9.1 10^3/uL (4.0-10.0)
[2023-04-01 05:59] LABS: ALBUMIN 3.5 G/DL (3.2-5.2); ALKALINE PHOSPHATASE 173 U/L (46-116); ALT/SGPT 76 U/L (7.0-40); AST/SGOT 172 U/L (<34); BILIRUBIN,TOTAL 14.1 MG/DL (0.3-1.2); BLOOD UREA NITROGEN 9 MG/DL (9-23); CALCIUM LEVEL 8.9 MG/DL (8.5-10.1); CARBON DIOXIDE LEVEL 24 MMOL/L (20-31); CHLORIDE LEVEL 98 MMOL/L (98-107); CREATININE FOR GFR 0.52 MG/DL (0.70-1.30); GLOMERULAR FILTRATION RATE > 60.0 (>60); GLUCOSE, FASTING 91 MG/DL (60-100); POTASSIUM SERUM 3.6 MMOL/L (3.5-5.1); SODIUM LEVEL 132 MMOL/L (136-145); TOTAL PROTEIN 6.8 G/DL (5.7-8.2)
[2023-04-01 06:00] VITALS: BP 134/83
[2023-04-01 06:00] LABS: THYROID STIMULATING HORMONE 1.978 uIU/ML (0.55-4.78)
[2023-04-01 06:23] LABS: LIPASE 874 U/L (12-53)
[2023-04-01] MEDS ORDERED: predniSONE 50 MG TAB PO SCH (09:00)
[2023-04-01] MEDS: NS 1,000 ML IV SCH ×2 (09:24→17:47)
[2023-04-01 10:29] LABS: BLOOD UREA NITROGEN 9 MG/DL (9-23); CALCIUM LEVEL 9.1 MG/DL (8.5-10.1); CARBON DIOXIDE LEVEL 27 MMOL/L (20-31); CHLORIDE LEVEL 96 MMOL/L (98-107); CREATININE FOR GFR 0.58 MG/DL (0.70-1.30); GLOMERULAR FILTRATION RATE > 60.0 (>60); GLUCOSE, FASTING 89 MG/DL (60-100); POTASSIUM SERUM 3.4 MMOL/L (3.5-5.1); SODIUM LEVEL 133 MMOL/L (136-145)
[2023-04-01] MEDS ORDERED: POTASSIUM CHLORIDE 10MEQ SR TABLET PO ONE (10:55)
[2023-04-01] MEDS: LACTULOSE 20GM/30ML SYRUP UDC PO SCH ×2 (12:43→17:47)
[2023-04-01] MEDS: OLANZapine 5 MG TAB PO PRN (12:44)
[2023-04-01] MEDS: rifAXIMin 550 MG TAB (XIFAXAN) PO SCH ×2 (12:44→20:56)
[2023-04-01 13:20] LABS: ALBUMIN 3.4 G/DL (3.2-5.2); ALKALINE PHOSPHATASE 173 U/L (46-116); ALT/SGPT 69 U/L (7.0-40); AST/SGOT 167 U/L (<34); BILIRUBIN,DIRECT 11.4 MG/DL (<0.4); BILIRUBIN,TOTAL 15.2 MG/DL (0.3-1.2); BLOOD UREA NITROGEN 10 MG/DL (9-23); CALCIUM LEVEL 8.6 MG/DL (8.5-10.1); CARBON DIOXIDE LEVEL 24 MMOL/L (20-31); CHLORIDE LEVEL 100 MMOL/L (98-107); CREATININE FOR GFR 0.54 MG/DL (0.70-1.30); GLOMERULAR FILTRATION RATE > 60.0 (>60); GLUCOSE, FASTING 91 MG/DL (60-100); POTASSIUM SERUM 3.5 MMOL/L (3.5-5.1); SODIUM LEVEL 135 MMOL/L (136-145); TOTAL PROTEIN 6.7 G/DL (5.7-8.2)
[2023-04-01] MEDS ORDERED: LORazepam 2 MG TAB PO PRN (13:40)
[2023-04-01 14:00] VITALS: BP 134/84
[2023-04-01] MEDS: predniSONE 20 MG TAB PO SCH (14:37)
[2023-04-01] MEDS: THIAMINE 100 MG TAB PO SCH ×2 (14:38→20:56)
[2023-04-01] MEDS: PANTOPRAZOLE 40MG TAB (PROTONIX) PO SCH (14:38)
[2023-04-01] MEDS: MULTIVITAMINS/MINERALS THERAP 1 TAB PO SCH (14:38)
[2023-04-01] MEDS: FOLIC ACID 1MG TAB PO SCH (14:38)
[2023-04-01 15:25] LABS: HEPATITIS B SURFACE ANTIGEN NEGATIVE (NEGATIVE)
[2023-04-01 15:47] LABS: HEPATITIS B CORE ANTIBODY IGM NEGATIVE (NEGATIVE)
[2023-04-01 17:57] LABS: BLOOD UREA NITROGEN 10 MG/DL (9-23); CALCIUM LEVEL 8.5 MG/DL (8.5-10.1); CARBON DIOXIDE LEVEL 27 MMOL/L (20-31); CHLORIDE LEVEL 100 MMOL/L (98-107); CREATININE FOR GFR 0.55 MG/DL (0.70-1.30); GLOMERULAR FILTRATION RATE > 60.0 (>60); GLUCOSE, FASTING 89 MG/DL (60-100); POTASSIUM SERUM 3.8 MMOL/L (3.5-5.1); SODIUM LEVEL 134 MMOL/L (136-145)
[2023-04-01 20:38] VITALS: BP 139/81
[2023-04-01 22:00] VITALS: BP 139/84
[2023-04-01 23:00] VITALS: BP 142/81
[2023-04-02 00:48] LABS: BLOOD UREA NITROGEN 12 MG/DL (9-23); CALCIUM LEVEL 8.4 MG/DL (8.5-10.1); CARBON DIOXIDE LEVEL 25 MMOL/L (20-31); CHLORIDE LEVEL 101 MMOL/L (98-107); CREATININE FOR GFR 0.59 MG/DL (0.70-1.30); GLOMERULAR FILTRATION RATE > 60.0 (>60); GLUCOSE, FASTING 121 MG/DL (60-100); POTASSIUM SERUM 3.8 MMOL/L (3.5-5.1); SODIUM LEVEL 133 MMOL/L (136-145)
[2023-04-02 00:50] VITALS: BP 127/86
[2023-04-02] MEDS: LACTULOSE 20GM/30ML SYRUP UDC PO SCH ×3 (00:50→12:00)
[2023-04-02] MEDS: OLANZapine 5 MG TAB PO PRN (00:52)
[2023-04-02] MEDS ORDERED: NICOTINE 14 MG/24 HR TRANSDERMAL TD PRN (01:05)
[2023-04-02] MEDS: FIDAXOMICIN 200 MG TAB (DIFICID) PO SCH ×2 (01:32→10:28)
[2023-04-02 05:39] LABS: BASO % 0.4 % (0.0-1.0); EOS % 0.4 % (0.0-3.0); HEMATOCRIT 33.7 % (42.0-52.0); HEMOGLOBIN 11.4 g/dl (13.5-17.5); LYMPH # 0.8 10^3/uL (1.5-5.0); LYMPH % 10.9 % (24.0-44.0); MEAN CORPUSCULAR HEMOGLOBIN 34.8 pg (27.0-33.0); MEAN CORPUSCULAR HGB CONC 33.8 g/dl (32.0-36.5); MEAN CORPUSCULAR VOLUME 102.7 fl (80.0-96.0); MONO # 0.7 10^3/uL (0.0-0.8); MONO % 9.9 % (2.0-8.0); NEUTROPHILS # 5.8 10^3/uL (1.5-8.5); NEUTROPHILS % 77.7 % (36.0-66.0); PLATELET COUNT, AUTOMATED 129 10^3/uL (150-450); RED BLOOD COUNT 3.28 10^6/uL (4.30-6.10); WHITE BLOOD COUNT 7.5 10^3/uL (4.0-10.0)
[2023-04-02 05:48] LABS: INR 1.65; PROTHROMBIN TIME 19.8 SECONDS (12.5-14.5)
[2023-04-02 06:00] VITALS: BP 134/89
[2023-04-02] MEDS: NS 1,000 ML IV SCH (06:03)
[2023-04-02 06:10] LABS: ALBUMIN 3.1 G/DL (3.2-5.2); ALKALINE PHOSPHATASE 157 U/L (46-116); ALT/SGPT 64 U/L (7.0-40); AST/SGOT 151 U/L (<34); BILIRUBIN,TOTAL 15.6 MG/DL (0.3-1.2); BLOOD UREA NITROGEN 11 MG/DL (9-23); CALCIUM LEVEL 7.8 MG/DL (8.5-10.1); CARBON DIOXIDE LEVEL 26 MMOL/L (20-31); CHLORIDE LEVEL 103 MMOL/L (98-107); CREATININE FOR GFR 0.55 MG/DL (0.70-1.30); GLOMERULAR FILTRATION RATE > 60.0 (>60); GLUCOSE, FASTING 100 MG/DL (60-100); MAGNESIUM LEVEL 1.7 MG/DL (1.8-2.4); POTASSIUM SERUM 3.7 MMOL/L (3.5-5.1); SODIUM LEVEL 136 MMOL/L (136-145); TOTAL PROTEIN 6.4 G/DL (5.7-8.2)
[2023-04-02 07:57] LABS: LIPASE 566 U/L (12-53)
[2023-04-02] MEDS: FOLIC ACID 1MG TAB PO SCH (09:00)
[2023-04-02] MEDS: MULTIVITAMINS/MINERALS THERAP 1 TAB PO SCH (09:00)
[2023-04-02] MEDS: THIAMINE 100 MG TAB PO SCH (09:00)
[2023-04-02 10:00] VITALS: BP 130/88
[2023-04-02] MEDS: PANTOPRAZOLE 40MG TAB (PROTONIX) PO SCH (10:28)
[2023-04-02] MEDS: predniSONE 20 MG TAB PO SCH (10:29)
[2023-04-02] MEDS: rifAXIMin 550 MG TAB (XIFAXAN) PO SCH (10:30)
[2023-04-02 14:00] VITALS: BP 122/60
[2023-04-02] MEDS ORDERED: FIDA200TA PO (14:53)
[2023-04-02] MEDS ORDERED: NICO14PA TD (14:53)
[2023-04-02] MEDS ORDERED: THIA100TA PO (14:53)
[2023-04-02] MEDS ORDERED: OLAN1TAB16 PO (14:53)
[2023-04-02] MEDS ORDERED: FOLI1TAB11 PO (14:53)
[2023-04-02] MEDS ORDERED: LACT20EL PO (14:53)
[2023-04-02] MEDS ORDERED: PANT40TA29 PO (14:53)
[2023-04-02] MEDS ORDERED: PRED20TA PO (14:53)
[2023-04-02] MEDS ORDERED: XIFA550T PO (14:53)
[2023-04-02] MEDS ORDERED: VITMTA PO (14:53)
== END 2023-04-02 15:51 | disposition short-term general hospital (02) | DRG 282 ==
LOC: M ED 09:58 → CMPBEDREQ 20:26 → M ED INP 20:30 → ENRESERV 21:56 → M MSPAV 23:13
PROVIDERS: ADMIT Internal Medicine; ATTEND Internal Medicine
DX: K85.90 Acute pancreatitis without necrosis or infection, unspecified (principal); G93.41 Metabolic encephalopathy; K76.6 Portal hypertension; D69.59 Other secondary thrombocytopenia; E72.20 Disorder of urea cycle metabolism, unspecified; R16.1 Splenomegaly, not elsewhere classified; K76.82 Hepatic encephalopathy; F10.21 Alcohol dependence, in remission; F17.290 Nicotine dependence, other tobacco product, uncomplicated; G47.00 Insomnia, unspecified; R44.0 Auditory hallucinations; R44.1 Visual hallucinations

== ENCOUNTER → 2023-07-15 | Outpatient (REF) | payer BC ==
[~2023-07-15] MED LIST changes: +FIDA200TA PO; +LACT20EL PO; +NICO14PA TD; +OLAN1TAB16 PO; +PRED20TA PO; +THIA100TA PO; +XIFA550T PO
== END ==
LOC: M LAB REF 14:23
PROVIDERS: ATTEND Physician Assistant Medical
DX: R17 Unspecified jaundice (principal)

== ENCOUNTER → 2023-07-18 | Outpatient (REF) | payer BC | LOC: M LAB REF 12:18 | PROVIDERS: ATTEND Physician Assistant Medical | DX: R17 Unspecified jaundice (principal) ==

== ENCOUNTER → 2023-10-02 | Outpatient (REF) | payer BC ==
[2023-10-02 15:18] LABS: INR 2.53; PROTHROMBIN TIME 26.3 SECONDS (12.5-14.5)
== END ==
LOC: M LAB REF 13:09
PROVIDERS: ATTEND Internal Medicine
DX: I81 Portal vein thrombosis (principal)

== ENCOUNTER 2024-04-13 09:57 | Inpatient (IN) | payer BC ==
[~2024-04-13] VITALS: Ht 180.3 cm; Wt 85.0 kg
[~2024-04-13 09:57] MED LIST changes: +THERTAB52 PO
[2024-04-13] MEDS ORDERED: PRED10TA2 PO (10:12)
[2024-04-13] MEDS ORDERED: CITA40TA7 PO (10:12)
[2024-04-13] MEDS ORDERED: KEPP10002 PO (10:12)
[2024-04-13] MEDS ORDERED: BACT400T PO (10:12)
[2024-04-13] MEDS ORDERED: CEFA2PLA3 IV (10:12)
[2024-04-13 10:59] LABS: BASO # 0.1 10^3/uL (0.0-0.2); BASO % 0.7 % (0.0-1.0); EOS # 0.2 10^3/uL (0.0-0.5); EOS % 1.9 % (0.0-3.0); HEMATOCRIT 30.1 % (42.0-52.0); HEMOGLOBIN 9.9 g/dl (13.5-17.5); LYMPH # 1.5 10^3/uL (1.5-5.0); LYMPH % 14.6 % (24.0-44.0); MEAN CORPUSCULAR HEMOGLOBIN 31.1 pg (27.0-33.0); MEAN CORPUSCULAR HGB CONC 32.9 g/dl (32.0-36.5); MEAN CORPUSCULAR VOLUME 94.7 fl (80.0-96.0); MONO # 0.7 10^3/uL (0.0-0.8); MONO % 7.1 % (2.0-8.0); NEUTROPHILS # 7.9 10^3/uL (1.5-8.5); NEUTROPHILS % 75.4 % (36.0-66.0); PLATELET COUNT, AUTOMATED 197 10^3/uL (150-450); RED BLOOD COUNT 3.18 10^6/uL (4.30-6.10); WHITE BLOOD COUNT 10.5 10^3/uL (4.0-10.0)
[2024-04-13 11:22] LABS: BLOOD UREA NITROGEN 13 MG/DL (9-23); CALCIUM LEVEL 8.8 MG/DL (8.5-10.1); CARBON DIOXIDE LEVEL 23 MMOL/L (20-31); CHLORIDE LEVEL 106 MMOL/L (98-107); CREATININE FOR GFR 0.45 MG/DL (0.70-1.30); GLOMERULAR FILTRATION RATE > 60.0 (>60); GLUCOSE, FASTING 134 MG/DL (60-100); POTASSIUM SERUM 3.5 MMOL/L (3.5-5.1); SODIUM LEVEL 137 MMOL/L (136-145)
[2024-04-13] MEDS: IPRATROPIUM 0.5MG/ALBUTEROL 2.5MG INH SOL UD 3ML (DUONEB) NEB ONE (12:34)
[2024-04-13] MEDS: levETIRAcetam INJection 1,000 MG in D5W 100 ML IV ONE (13:16)
[2024-04-13] MEDS: predniSONE 10MG TAB PO ONE (13:16)
[2024-04-13 13:28] LABS: CPK CREATINE PHOSPHOKINASE 15 U/L (46-171)
[2024-04-13 13:29] LABS: ALBUMIN 2.9 G/DL (3.2-5.2); ALKALINE PHOSPHATASE 157 U/L (46-116); ALT/SGPT 36 U/L (7.0-40); AST/SGOT 42 U/L (<34); BILIRUBIN,DIRECT 0.8 MG/DL (<0.4); BILIRUBIN,TOTAL 1.7 MG/DL (0.3-1.2); CK-MB VALUE MASS < 1.0 NG/ML (<3.6); MB/CK RELATIVE INDEX 6.66 (< OR =4); TOTAL PROTEIN 5.5 G/DL (5.7-8.2)
[2024-04-13 13:31] LABS: FREE T4 1.27 NG/DL (0.89-1.76); THYROID STIMULATING HORMONE 1.129 uIU/ML (0.55-4.78)
[2024-04-13] MEDS ORDERED: BACTDSTA PO (13:46)
[2024-04-13] MEDS ORDERED: THIA100TA PO (13:46)
[2024-04-13] MEDS ORDERED: PANT40TA29 PO (13:46)
[2024-04-13] MEDS ORDERED: FOLI1TAB11 PO (13:46)
[2024-04-13] MEDS ORDERED: XIFA550T PO (13:46)
[2024-04-13] MEDS ORDERED: HOME MED LIST COMPLETE! XX SCH (13:55)
[2024-04-13] MEDS: ceFAZolin SOD 2 GM in IV 1 EA IV ONE (14:07)
[2024-04-13] MEDS ORDERED: LACTULOSE 20GM/30ML SYRUP UDC PO PRN (14:40)
[2024-04-13] MEDS: CitaloPRAM (CeleXA) 20 MG TAB PO SCH (15:04)
[2024-04-13 15:45] VITALS: BP 140/71; TEMP 99.1; O2SAT 96
[2024-04-13] MEDS: PANTOPRAZOLE 40MG TAB (PROTONIX) PO SCH (16:47)
[2024-04-13] MEDS: ENOXAPARIN 40MG/0.4ML SYRINGE (J1650 PER 10MG) SC SCH (16:47)
[2024-04-13 17:50] VITALS: BP 113/61; TEMP 98.8; O2SAT 98
[2024-04-13 20:00] VITALS: BP 115/60; TEMP 96.9; O2SAT 95
[2024-04-13] MEDS: rifAXIMin 550 MG TAB (XIFAXAN) PO SCH (20:35)
[2024-04-13] MEDS: levETIRAcetam 250MG TABLET (KEPPRA) PO SCH (20:36)
[2024-04-13] MEDS: ceFAZolin SOD 2 GM in IV 1 EA IV SCH (22:04)
[2024-04-14 02:00] VITALS: BP 106/63; TEMP 99; O2SAT 93
[2024-04-14 05:38] VITALS: BP 115/62; TEMP 99; O2SAT 94
[2024-04-14 07:10] LABS: PROCALCITONIN 0.05 ng/ml
[2024-04-14 07:11] LABS: ALBUMIN 2.7 G/DL (3.2-5.2); ALKALINE PHOSPHATASE 135 U/L (46-116); ALT/SGPT 30 U/L (7.0-40); AST/SGOT 33 U/L (<34); BILIRUBIN,TOTAL 1.5 MG/DL (0.3-1.2); BLOOD UREA NITROGEN 13 MG/DL (9-23); CALCIUM LEVEL 8.3 MG/DL (8.5-10.1); CARBON DIOXIDE LEVEL 24 MMOL/L (20-31); CHLORIDE LEVEL 108 MMOL/L (98-107); CREATININE FOR GFR 0.43 MG/DL (0.70-1.30); GLOMERULAR FILTRATION RATE > 60.0 (>60); GLUCOSE, FASTING 82 MG/DL (60-100); MAGNESIUM LEVEL 1.4 MG/DL (1.8-2.4); POTASSIUM SERUM 3.8 MMOL/L (3.5-5.1); SODIUM LEVEL 140 MMOL/L (136-145)
[2024-04-14] MEDS: MAG SULF 1GM/100ML (MAG RUN) 1 GM in IV 1 EA IV SCH (09:55)
[2024-04-14 10:00] VITALS: BP 121/67; TEMP 99.3; O2SAT 96
[2024-04-14] MEDS: predniSONE 10MG TAB PO SCH (10:27)
[2024-04-14] MEDS: FOLIC ACID 1MG TAB PO SCH (10:27)
[2024-04-14] MEDS: BACTRIM 160MG/800MG DS TAB PO SCH (10:27)
[2024-04-14] MEDS: THIAMINE 100 MG TAB PO SCH (10:28)
[2024-04-14] MEDS: MULTIVITAMINS/MINERALS THERAP 1 TAB PO SCH (10:28)
[2024-04-14] MEDS: VITAMIN D (CHOLECALCIFEROL) 400 INTERNATIONAL UNITS TAB PO SCH (11:13)
[2024-04-14 14:00] VITALS: BP 122/68; TEMP 99.1; O2SAT 97
[2024-04-14 18:00] VITALS: BP 122/68; TEMP 99.5; O2SAT 96
[2024-04-14 21:31] VITALS: BP 125/66; TEMP 99.3; O2SAT 96
[2024-04-15 02:00] VITALS: BP 120/65; TEMP 99.7; O2SAT 95
[2024-04-15 06:00] VITALS: BP 116/67; TEMP 98.6; O2SAT 96
[2024-04-15 08:20] VITALS: O2SAT 92
[2024-04-15 10:00] VITALS: BP 100/57; TEMP 99.3; O2SAT 94
[2024-04-15] MEDS ORDERED: CEFA1SOL IV (11:45)
[2024-04-15] MEDS ORDERED: BACTDSTA PO (11:45)
== END 2024-04-15 13:28 | DRG 724 ==
LOC: M ED 09:57 → M ED INP 14:29 → M MSPAV 15:32
PROVIDERS: ADMIT Preventive Medicine Undersea and Hyperbaric Medicine; ATTEND Preventive Medicine Undersea and Hyperbaric Medicine
DX: R78.81 Bacteremia (principal); G72.81 Critical illness myopathy; E43 Unspecified severe protein-calorie malnutrition; L89.152 Pressure ulcer of sacral region, stage 2; K70.30 Alcoholic cirrhosis of liver without ascites; Z99.81 Dependence on supplemental oxygen; G62.9 Polyneuropathy, unspecified; B95.61 Methicillin susceptible Staphylococcus aureus infection as the cause of diseases classified elsewhere; G40.909 Epilepsy, unspecified, not intractable, without status epilepticus; Z87.891 Personal history of nicotine dependence; Z79.52 Long term (current) use of systemic steroids; Z79.899 Other long term (current) drug therapy

== ENCOUNTER → 2024-05-11 | Outpatient (REF) | payer BC ==
[~2024-05-11] MED LIST changes: +AMMO12LO EXT; +BACT400T PO; +BACTDSTA PO; +CEFA1SOL IV; +CEFA2PLA3 IV; +CEPH500C PO; +CITA40TA7 PO; +KEPP10002 PO; +MAGN400T2 PO; +PRED10TA2 PO
[2024-05-11 14:59] LABS: BASO # 0.1 10^3/uL (0.0-0.2); BASO % 1.3 % (0.0-1.0); EOS # 0.2 10^3/uL (0.0-0.5); EOS % 2.6 % (0.0-3.0); HEMATOCRIT 31.4 % (42.0-52.0); HEMOGLOBIN 9.6 g/dl (13.5-17.5); LYMPH # 2.2 10^3/uL (1.5-5.0); LYMPH % 23.6 % (24.0-44.0); MEAN CORPUSCULAR HEMOGLOBIN 27.9 pg (27.0-33.0); MEAN CORPUSCULAR HGB CONC 30.6 g/dl (32.0-36.5); MEAN CORPUSCULAR VOLUME 91.3 fl (80.0-96.0); MONO # 0.4 10^3/uL (0.0-0.8); MONO % 4.3 % (2.0-8.0); NEUTROPHILS # 6.3 10^3/uL (1.5-8.5); NEUTROPHILS % 67.9 % (36.0-66.0); PLATELET COUNT, AUTOMATED 295 10^3/uL (150-450); RED BLOOD COUNT 3.44 10^6/uL (4.30-6.10); WHITE BLOOD COUNT 9.3 10^3/uL (4.0-10.0)
[2024-05-11 15:03] LABS: TESTOSTERONE 1034 NG/DL (241-827)
[2024-05-11 15:08] LABS: ALBUMIN 3.3 G/DL (3.2-5.2); ALKALINE PHOSPHATASE 134 U/L (46-116); ALT/SGPT 54 U/L (7.0-40); AST/SGOT 44 U/L (<34); BILIRUBIN,TOTAL 1.5 MG/DL (0.3-1.2); BLOOD UREA NITROGEN 11 MG/DL (9-23); CALCIUM LEVEL 9.2 MG/DL (8.5-10.1); CARBON DIOXIDE LEVEL 26 MMOL/L (20-31); CHLORIDE LEVEL 107 MMOL/L (98-107); CREATININE FOR GFR 0.69 MG/DL (0.70-1.30); GLOMERULAR FILTRATION RATE > 60.0 (>60); GLUCOSE, FASTING 92 MG/DL (60-100); MAGNESIUM LEVEL 1.7 MG/DL (1.8-2.4); POTASSIUM SERUM 3.8 MMOL/L (3.5-5.1); SODIUM LEVEL 138 MMOL/L (136-145); TOTAL PROTEIN 5.6 G/DL (5.7-8.2)
== END ==
LOC: M LABDRWAD 13:43
PROVIDERS: ATTEND Internal Medicine
DX: R68.82 Decreased libido (principal); K70.31 Alcoholic cirrhosis of liver with ascites; I95.9 Hypotension, unspecified; R63.4 Abnormal weight loss

== ENCOUNTER → 2024-05-19 | Outpatient (REF) | payer BC ==
[2024-05-19 19:29] LABS: ALBUMIN 3.2 G/DL (3.2-5.2); ALKALINE PHOSPHATASE 121 U/L (46-116); ALT/SGPT 31 U/L (7.0-40); AST/SGOT 31 U/L (<34); BILIRUBIN,TOTAL 1.4 MG/DL (0.3-1.2); BLOOD UREA NITROGEN 17 MG/DL (9-23); CALCIUM LEVEL 9.2 MG/DL (8.5-10.1); CARBON DIOXIDE LEVEL 24 MMOL/L (20-31); CHLORIDE LEVEL 108 MMOL/L (98-107); CREATININE FOR GFR 0.65 MG/DL (0.70-1.30); GLOMERULAR FILTRATION RATE > 60.0 (>60); GLUCOSE, FASTING 111 MG/DL (60-100); MAGNESIUM LEVEL 1.5 MG/DL (1.8-2.4); POTASSIUM SERUM 4.6 MMOL/L (3.5-5.1); SODIUM LEVEL 140 MMOL/L (136-145); TOTAL PROTEIN 5.4 G/DL (5.7-8.2)
[2024-05-19 19:30] LABS: BASO # 0.1 10^3/uL (0.0-0.2); BASO % 0.9 % (0.0-1.0); EOS # 0.1 10^3/uL (0.0-0.5); EOS % 1.3 % (0.0-3.0); HEMATOCRIT 30.2 % (42.0-52.0); HEMOGLOBIN 9.3 g/dl (13.5-17.5); LYMPH # 0.9 10^3/uL (1.5-5.0); LYMPH % 13.9 % (24.0-44.0); MEAN CORPUSCULAR HEMOGLOBIN 28.4 pg (27.0-33.0); MEAN CORPUSCULAR HGB CONC 30.8 g/dl (32.0-36.5); MEAN CORPUSCULAR VOLUME 92.1 fl (80.0-96.0); MONO # 0.3 10^3/uL (0.0-0.8); MONO % 4.2 % (2.0-8.0); NEUTROPHILS # 5.3 10^3/uL (1.5-8.5); NEUTROPHILS % 79.4 % (36.0-66.0); PLATELET COUNT, AUTOMATED 249 10^3/uL (150-450); RED BLOOD COUNT 3.28 10^6/uL (4.30-6.10); WHITE BLOOD COUNT 6.7 10^3/uL (4.0-10.0)
== END ==
LOC: M LABDRWAD 17:14
PROVIDERS: ATTEND Internal Medicine
DX: K70.31 Alcoholic cirrhosis of liver with ascites (principal); I95.9 Hypotension, unspecified; R63.4 Abnormal weight loss

== ENCOUNTER → 2024-05-25 | Outpatient (REF) | payer BC ==
[2024-05-25 19:11] LABS: BASO # 0.1 10^3/uL (0.0-0.2); EOS # 0.2 10^3/uL (0.0-0.5); EOS % 3.1 % (0.0-3.0); HEMATOCRIT 28.6 % (42.0-52.0); HEMOGLOBIN 8.8 g/dl (13.5-17.5); LYMPH # 0.7 10^3/uL (1.5-5.0); LYMPH % 11.1 % (24.0-44.0); MEAN CORPUSCULAR HEMOGLOBIN 27.8 pg (27.0-33.0); MEAN CORPUSCULAR HGB CONC 30.8 g/dl (32.0-36.5); MEAN CORPUSCULAR VOLUME 90.2 fl (80.0-96.0); MONO # 0.3 10^3/uL (0.0-0.8); MONO % 5.1 % (2.0-8.0); NEUTROPHILS # 5.3 10^3/uL (1.5-8.5); NEUTROPHILS % 79.3 % (36.0-66.0); PLATELET COUNT, AUTOMATED 207 10^3/uL (150-450); RED BLOOD COUNT 3.17 10^6/uL (4.30-6.10); WHITE BLOOD COUNT 6.7 10^3/uL (4.0-10.0)
[2024-05-25 19:16] LABS: ALBUMIN 3.3 G/DL (3.2-5.2); ALKALINE PHOSPHATASE 137 U/L (46-116); ALT/SGPT 26 U/L (7.0-40); AST/SGOT 31 U/L (<34); BILIRUBIN,TOTAL 1.6 MG/DL (0.3-1.2); BLOOD UREA NITROGEN 15 MG/DL (9-23); CALCIUM LEVEL 8.9 MG/DL (8.5-10.1); CARBON DIOXIDE LEVEL 25 MMOL/L (20-31); CHLORIDE LEVEL 106 MMOL/L (98-107); CREATININE FOR GFR 0.75 MG/DL (0.70-1.30); GLOMERULAR FILTRATION RATE > 60.0 (>60); GLUCOSE, FASTING 134 MG/DL (60-100); MAGNESIUM LEVEL 1.5 MG/DL (1.8-2.4); POTASSIUM SERUM 4.4 MMOL/L (3.5-5.1); SODIUM LEVEL 136 MMOL/L (136-145); TOTAL PROTEIN 5.4 G/DL (5.7-8.2)
== END ==
LOC: M LABDRWAD 17:21
PROVIDERS: ATTEND Internal Medicine
DX: K70.31 Alcoholic cirrhosis of liver with ascites (principal); I95.9 Hypotension, unspecified; R63.4 Abnormal weight loss

== ENCOUNTER → 2024-06-21 | Outpatient (CLI) | payer BC | LOC: M RAD 08:54 | PROVIDERS: ATTEND Internal Medicine Pulmonary Disease | DX: R91.8 Other nonspecific abnormal finding of lung field (principal) ==

== ENCOUNTER → 2024-06-28 | Outpatient (REF) | payer BC ==
[2024-06-28 13:42] LABS: C REACTIVE PROTEIN QUANTITATIV < 0.40 MG/DL (<1.0)
[2024-06-28 13:43] LABS: IRON (FE) 104 UG/DL (65-175); PERCENT SATURATION 28.5 % (19.7-50.0); TOTAL IRON BINDING CAPACITY 365 UG/DL (250-425)
[2024-06-28 13:46] LABS: FERRITIN 17.8 NG/ML (10.5-307.3); VITAMIN B12 LEVEL 1407 PG/ML (211-911)
== END ==
LOC: M LAB REF 12:29
PROVIDERS: ATTEND Internal Medicine
DX: R53.1 Weakness (principal); R53.83 Other fatigue; D64.9 Anemia, unspecified

== ENCOUNTER 2025-01-16 14:04 | Inpatient (IN) | payer BC, MEDICAID, SELFPAY ==
[~2025-01-16] VITALS: Ht 180.3 cm; Wt 100.6 kg
[2025-01-16] VITALS (7 sets, daily range): BP systolic 114–118; BP diastolic 56–59; TEMP 99.9–100.2; O2SAT 96–99
[2025-01-16] MEDS: NS (Normal Saline) 0.9% 1,000 ML IV ONE (14:25)
[2025-01-16] MEDS ORDERED: ISOVUE-370 76% 100ML VIAL As Ordered ONE (14:43)
[2025-01-16 15:19] LABS: VENOUS BASE EXCESS -8.8 (-2.0-2.0); VENOUS HCO3 18.8 MMOL/L (23.0-27.0); VENOUS O2 SATURATION 72.1 % (60.0-80.0); VENOUS PARTIAL PRESSURE CO2 48.9 mmHg (38.0-50.0); VENOUS PARTIAL PRESSURE O2 56.2 mmHg (30.0-50.0); VENOUS PH 7.203 UNITS (7.330-7.430); VENOUS TOTAL CO2 20.3 MMOL/L (24.0-28.0)
[2025-01-16 15:29] LABS: BASO # 0.2 10^3/uL (0.0-0.2); BASO % 1.5 % (0.0-1.0); EOS # 0.2 10^3/uL (0.0-0.5); EOS % 1.1 % (0.0-3.0); HEMATOCRIT 25.8 % (42.0-52.0); HEMOGLOBIN 7.6 g/dl (13.5-17.5); LYMPH # 2.1 10^3/uL (1.5-5.0); LYMPH % 12.9 % (24.0-44.0); MEAN CORPUSCULAR HGB CONC 29.5 g/dl (32.0-36.5); MEAN CORPUSCULAR VOLUME 91.8 fl (80.0-96.0); MONO # 0.5 10^3/uL (0.0-0.8); MONO % 2.8 % (2.0-8.0); NEUTROPHILS # 12.8 10^3/uL (1.5-8.5); NEUTROPHILS % 80.6 % (36.0-66.0); RED BLOOD COUNT 2.81 10^6/uL (4.30-6.10); WHITE BLOOD COUNT 15.9 10^3/uL (4.0-10.0)
[2025-01-16 15:39] LABS: INR 1.3; PARTIAL THROMBOPLASTIN TIME 39.3 SECONDS (24.8-34.2); PROTHROMBIN TIME 16.5 SECONDS (12.5-14.5)
[2025-01-16 15:52] LABS: CK-MB VALUE MASS 1.6 NG/ML (<3.6)
[2025-01-16 15:54] LABS: LIPASE 179 U/L (12-53)
[2025-01-16 15:55] LABS: ALBUMIN 2.7 G/DL (3.2-5.2); ALKALINE PHOSPHATASE 354 U/L (40-129); ALT/SGPT 29 U/L (7.0-40); AMYLASE 210 U/L (30-118); AST/SGOT 179 U/L (<34); BILIRUBIN,DIRECT 2.8 MG/DL (<0.4); BILIRUBIN,TOTAL 3.9 MG/DL (0.3-1.2); BLOOD UREA NITROGEN 8 MG/DL (9-23); CALCIUM LEVEL 7.7 MG/DL (8.5-10.1); CARBON DIOXIDE LEVEL 18 MMOL/L (20-31); CHLORIDE LEVEL 104 MMOL/L (98-107); CREATININE FOR GFR 0.63 MG/DL (0.70-1.30); GLOMERULAR FILTRATION RATE > 60.0 (>60); GLUCOSE, FASTING 172 MG/DL (60-100); POTASSIUM SERUM 3.3 MMOL/L (3.5-5.1); SALICYLATE LEVEL < 3.0 MG/DL (<30); SODIUM LEVEL 142 MMOL/L (136-145); TOTAL PROTEIN 7.6 G/DL (5.7-8.2)
[2025-01-16 16:05] LABS: CPK CREATINE PHOSPHOKINASE 148 U/L (46-171); MAGNESIUM LEVEL 1.3 MG/DL (1.8-2.4); MB/CK RELATIVE INDEX 1.08 (< OR =4)
[2025-01-16 16:09] LABS: FREE T4 1.49 NG/DL (0.89-1.76); THYROID STIMULATING HORMONE 1.076 uIU/ML (0.55-4.78)
[2025-01-16] MEDS: MULTIVITAMIN -ADULT INJECTION 10 ML, THIAMINE INJection 100 MG, FOLIC ACID 1 MG in NS (... IV ONE (16:10)
[2025-01-16] MEDS ORDERED: MAG SULF 1GM/100ML (MAG RUN) 1 GM in IV 1 EA IV ONE (16:20)
[2025-01-16] MEDS: MAG SULF 1GM/100ML (MAG RUN) 1 GM in IV 1 EA IV ONE ×2 (16:37→20:41)
[2025-01-16] MEDS: PIPERACILLIN/TAZOBACTAM SOD 4.5 GM in DEXTROSE 5% (D5W) ADV/MINI-BAG 50 ML IV ONE (17:20)
[2025-01-16] MEDS: KCL 10MEQ/100ML SWI (KRUN) 10 MEQ in IV 1 EA IV ONE (17:23)
[2025-01-16] MEDS ORDERED: HOME MED LIST COMPLETE! XX SCH (18:10)
[2025-01-16 19:55] LABS: CK-MB VALUE MASS 1.6 NG/ML (<3.6)
[2025-01-16 19:57] LABS: MB/CK RELATIVE INDEX 1.13 (< OR =4)
[2025-01-16] MEDS: POTASSIUM CHLORIDE 10% LIQ 20MEQ/15ML UDC PO ONE (20:33)
[2025-01-16] MEDS: CALCIUM GLUCONATE 1,000 MG in DEXTROSE 5% (D5W) MINI-BAG PLU 100 ML IV ONE (20:35)
[2025-01-16] MEDS: LR 1,000 ML IV SCH (20:39)
[2025-01-16] MEDS: PANTOPRAZOLE 40MG VIAL IV SCH (20:41)
[2025-01-16] MEDS: OXAZEPAM 15MG CAP PO SCH (22:17)
[2025-01-16] MEDS: NICOTINE 21MG/24HR 1 EA TRANSDERMAL TD ONE (22:22)
[2025-01-16] MEDS ORDERED: LORazepam 2 MG TAB XX PRN (23:15)
[2025-01-17] VITALS (21 sets, daily range): BP systolic 102–129; BP diastolic 54–74; TEMP 99.3–101.1; O2SAT 93–99
[2025-01-17 05:37] LABS: BLOOD UREA NITROGEN 8 MG/DL (9-23); CARBON DIOXIDE LEVEL 21 MMOL/L (20-31); CHLORIDE LEVEL 105 MMOL/L (98-107); GLOMERULAR FILTRATION RATE > 60.0 (>60); GLUCOSE, FASTING 112 MG/DL (60-100); MAGNESIUM LEVEL 1.2 MG/DL (1.8-2.4); PHOSPHORUS LEVEL 2.2 MG/DL (2.5-4.9); POTASSIUM SERUM 3.1 MMOL/L (3.5-5.1); SODIUM LEVEL 140 MMOL/L (136-145)
[2025-01-17] MEDS: POTASSIUM CHLORIDE 10% LIQ 20MEQ/15ML UDC PO ONE (06:08)
[2025-01-17] MEDS: MAG SULF 1GM/100ML (MAG RUN) 1 GM in IV 1 EA IV SCH ×2 (06:16→12:07)
[2025-01-17] MEDS: KCL 10MEQ/100ML SWI (KRUN) 10 MEQ in IV 1 EA IV SCH (07:57)
[2025-01-17] MEDS: MULTIVITAMINS/MINERALS THERAP 1 TAB PO SCH (08:00)
[2025-01-17] MEDS: THIAMINE 100 MG TAB PO SCH (08:00)
[2025-01-17] MEDS: LORazepam 2 MG/ML 1ML VIAL IV PRN (08:59)
[2025-01-17] MEDS ORDERED: POTASSIUM PHOSPHATE INJ 30 MMOL in D5W 500 ML IV ONE (10:00)
[2025-01-17] MEDS: ACETAMINOPHEN 500 MG TAB PO PRN (10:22)
[2025-01-17] MEDS ORDERED: HOME MED LIST COMPLETE! XX SCH (10:25)
[2025-01-17 10:28] LABS: HEMATOCRIT 24.1 % (42.0-52.0); HEMOGLOBIN 7.6 g/dl (13.5-17.5); MEAN CORPUSCULAR HEMOGLOBIN 27.9 pg (27.0-33.0); MEAN CORPUSCULAR HGB CONC 31.5 g/dl (32.0-36.5); MEAN CORPUSCULAR VOLUME 88.6 fl (80.0-96.0); RED BLOOD COUNT 2.72 10^6/uL (4.30-6.10); WHITE BLOOD COUNT 7.3 10^3/uL (4.0-10.0)
[2025-01-17 10:56] LABS: PLATELET COUNT, AUTOMATED 46 10^3/uL (150-450)
[2025-01-17 11:00] LABS: ALBUMIN 2.2 G/DL (3.2-5.2); ALKALINE PHOSPHATASE 285 U/L (40-129); ALT/SGPT 25 U/L (7.0-40); AST/SGOT 161 U/L (<34); BILIRUBIN,TOTAL 5.1 MG/DL (0.3-1.2); BLOOD UREA NITROGEN 6 MG/DL (9-23); CALCIUM LEVEL 7.1 MG/DL (8.5-10.1); CARBON DIOXIDE LEVEL 22 MMOL/L (20-31); CHLORIDE LEVEL 105 MMOL/L (98-107); CREATININE FOR GFR 0.59 MG/DL (0.70-1.30); GLOMERULAR FILTRATION RATE > 60.0 (>60); GLUCOSE, FASTING 102 MG/DL (60-100); MAGNESIUM LEVEL 1.6 MG/DL (1.8-2.4); POTASSIUM SERUM 3.9 MMOL/L (3.5-5.1); SODIUM LEVEL 137 MMOL/L (136-145); TOTAL PROTEIN 6.2 G/DL (5.7-8.2)
[2025-01-17 12:07] LABS: PERCENT SATURATION 59.4 % (19.7-50.0)
[2025-01-17 12:08] LABS: FERRITIN 30.9 NG/ML (10.5-307.3)
[2025-01-17] MEDS: OXAZEPAM 15MG CAP PO SCH (12:08)
[2025-01-17] MEDS: cloNIDine 0.1MG TABLET PO SCH (12:09)
[2025-01-17] MEDS: LACTULOSE 20GM/30ML SYRUP UDC PO SCH (12:16)
[2025-01-17 12:45] LABS: PROCALCITONIN 0.44 ng/ml
[2025-01-17 12:57] LABS: INR 1.34; PARTIAL THROMBOPLASTIN TIME 39.6 SECONDS (24.8-34.2); PROTHROMBIN TIME 16.8 SECONDS (12.5-14.5)
[2025-01-17 15:09] LABS: IONIZED CALCIUM 4.2 MG/DL (4.5-5.3)
[2025-01-17 15:41] LABS: MAGNESIUM LEVEL 2.1 MG/DL (1.8-2.4); PHOSPHORUS LEVEL 1.2 MG/DL (2.5-4.9)
[2025-01-17] MEDS ORDERED: THIAMINE 100 MG TAB PO SCH (15:45)
[2025-01-17] MEDS: POTASSIUM PHOSPHATE INJ 20 MMOL in D5W 250 ML IV ONE (16:17)
[2025-01-17] MEDS: MULTIVITAMIN -ADULT INJECTION 10 ML, THIAMINE INJection 100 MG, FOLIC ACID 1 MG in NS (... IV ONE (18:23)
[2025-01-17] MEDS: NEUTRA-PHOS 1.5 GM PACKET PO SCH (20:24)
[2025-01-17] MEDS: NICOTINE 14 MG/24 HR TRANSDERMAL TD SCH (20:24)
[2025-01-18] VITALS (20 sets, daily range): BP systolic 84–141; BP diastolic 51–72; TEMP 98.1–100.6; O2SAT 95–100
[2025-01-18 04:41] LABS: BASO % 0.7 % (0.0-1.0); EOS # 0.1 10^3/uL (0.0-0.5); HEMATOCRIT 21.2 % (42.0-52.0); LYMPH # 0.7 10^3/uL (1.5-5.0); LYMPH % 11.5 % (24.0-44.0); MEAN CORPUSCULAR HEMOGLOBIN 27.6 pg (27.0-33.0); MEAN CORPUSCULAR HGB CONC 31.1 g/dl (32.0-36.5); MEAN CORPUSCULAR VOLUME 88.7 fl (80.0-96.0); MONO # 0.4 10^3/uL (0.0-0.8); MONO % 6.5 % (2.0-8.0); NEUTROPHILS # 4.8 10^3/uL (1.5-8.5); NEUTROPHILS % 78.8 % (36.0-66.0); RED BLOOD COUNT 2.39 10^6/uL (4.30-6.10); WHITE BLOOD COUNT 6.1 10^3/uL (4.0-10.0)
[2025-01-18 04:49] LABS: PLATELET COUNT, AUTOMATED 51 10^3/uL (150-450)
[2025-01-18 04:50] LABS: HEMOGLOBIN 6.6 g/dl (13.5-17.5)
[2025-01-18 05:06] LABS: ALBUMIN 1.9 G/DL (3.2-5.2); ALKALINE PHOSPHATASE 264 U/L (40-129); ALT/SGPT 24 U/L (7.0-40); AST/SGOT 149 U/L (<34); BILIRUBIN,TOTAL 4.9 MG/DL (0.3-1.2); BLOOD UREA NITROGEN 7 MG/DL (9-23); CARBON DIOXIDE LEVEL 22 MMOL/L (20-31); CHLORIDE LEVEL 105 MMOL/L (98-107); CREATININE FOR GFR 0.58 MG/DL (0.70-1.30); GLOMERULAR FILTRATION RATE > 60.0 (>60); GLUCOSE, FASTING 117 MG/DL (60-100); MAGNESIUM LEVEL 1.5 MG/DL (1.8-2.4); POTASSIUM SERUM 3.8 MMOL/L (3.5-5.1); SODIUM LEVEL 138 MMOL/L (136-145); TOTAL PROTEIN 5.5 G/DL (5.7-8.2)
[2025-01-18] MEDS: MAG SULF 1GM/100ML (MAG RUN) 1 GM in IV 1 EA IV SCH ×2 (06:28→20:59)
[2025-01-18] MEDS: FOLIC ACID 1MG TAB PO SCH (08:31)
[2025-01-18] MEDS: THIAMINE 100 MG TAB PO SCH (08:31)
[2025-01-18] MEDS: LACTULOSE 20GM/30ML SYRUP UDC PO SCH (12:20)
[2025-01-18 19:06] LABS: HEMATOCRIT 25.5 % (42.0-52.0)
[2025-01-18 19:28] LABS: BLOOD UREA NITROGEN 7 MG/DL (9-23); CALCIUM LEVEL 7.4 MG/DL (8.5-10.1); CARBON DIOXIDE LEVEL 20 MMOL/L (20-31); CHLORIDE LEVEL 105 MMOL/L (98-107); CREATININE FOR GFR 0.55 MG/DL (0.70-1.30); GLOMERULAR FILTRATION RATE > 60.0 (>60); GLUCOSE, FASTING 143 MG/DL (60-100); MAGNESIUM LEVEL 1.7 MG/DL (1.8-2.4); PHOSPHORUS LEVEL 1.5 MG/DL (2.5-4.9); POTASSIUM SERUM 3.9 MMOL/L (3.5-5.1); SODIUM LEVEL 134 MMOL/L (136-145)
[2025-01-18] MEDS: MULTIVITAMIN -ADULT INJECTION 10 ML, THIAMINE INJection 100 MG, FOLIC ACID 1 MG in NS (... IV ONE (20:58)
[2025-01-18] MEDS: PANTOPRAZOLE 40MG TAB (PROTONIX) PO SCH (20:59)
[2025-01-19] VITALS (15 sets, daily range): BP systolic 96–147; BP diastolic 50–97; TEMP 98.1–104.4; O2SAT 94–98
[2025-01-19 06:23] LABS: BASO # 0.1 10^3/uL (0.0-0.2); BASO % 0.8 % (0.0-1.0); EOS # 0.1 10^3/uL (0.0-0.5); EOS % 1.6 % (0.0-3.0); HEMATOCRIT 24.2 % (42.0-52.0); HEMOGLOBIN 7.6 g/dl (13.5-17.5); LYMPH # 0.6 10^3/uL (1.5-5.0); LYMPH % 7.4 % (24.0-44.0); MEAN CORPUSCULAR HGB CONC 31.4 g/dl (32.0-36.5); MEAN CORPUSCULAR VOLUME 86.1 fl (80.0-96.0); MONO # 0.5 10^3/uL (0.0-0.8); MONO % 6.9 % (2.0-8.0); NEUTROPHILS # 6.2 10^3/uL (1.5-8.5); RED BLOOD COUNT 2.81 10^6/uL (4.30-6.10); WHITE BLOOD COUNT 7.5 10^3/uL (4.0-10.0)
[2025-01-19 06:24] LABS: ALBUMIN 2.5 G/DL (3.2-5.2); ALKALINE PHOSPHATASE 247 U/L (40-129); ALT/SGPT 24 U/L (7.0-40); AST/SGOT 117 U/L (<34); BLOOD UREA NITROGEN 6 MG/DL (9-23); CALCIUM LEVEL 7.6 MG/DL (8.5-10.1); CARBON DIOXIDE LEVEL 21 MMOL/L (20-31); CHLORIDE LEVEL 107 MMOL/L (98-107); CREATININE FOR GFR 0.55 MG/DL (0.70-1.30); GLOMERULAR FILTRATION RATE > 60.0 (>60); GLUCOSE, FASTING 108 MG/DL (60-100); MAGNESIUM LEVEL 1.7 MG/DL (1.8-2.4); PHOSPHORUS LEVEL 0.8 MG/DL (2.5-4.9); POTASSIUM SERUM 3.7 MMOL/L (3.5-5.1); SODIUM LEVEL 138 MMOL/L (136-145); TOTAL PROTEIN 6.1 G/DL (5.7-8.2)
[2025-01-19 06:38] LABS: PLATELET COUNT, AUTOMATED 83 10^3/uL (150-450)
[2025-01-19] MEDS ORDERED: CALCIUM/VITAMIN D 500 MG TAB PO SCH (08:00)
[2025-01-19] MEDS: LACTULOSE 20GM/30ML SYRUP UDC PO ONE ×2 (09:00→09:39)
[2025-01-19] MEDS: MAGNESIUM OXIDE 400MG TAB (MAG-OX) PO SCH (09:38)
[2025-01-19] MEDS: POTASSIUM CHLORIDE 10MEQ SR TABLET PO SCH (09:38)
[2025-01-19] MEDS: MAG SULF 1GM/100ML (MAG RUN) 1 GM in IV 1 EA IV SCH (09:39)
[2025-01-19] MEDS: NEUTRA-PHOS 1.5 GM PACKET PO SCH (09:55)
[2025-01-19] MEDS: PHYTONADIONE 5 MG TAB PO ONE (12:21)
[2025-01-19] MEDS: SALIVA SUBSTITUTE(MOUTHKOTE) BTL MT SCH (14:23)
[2025-01-19] MEDS: LR 1,000 ML IV ONE ×2 (17:54→18:00)
[2025-01-19] MEDS: MIDODRINE 5 MG TAB PO ONE (18:58)
[2025-01-19] MEDS: PIPERACILLIN/TAZOBACTAM SOD 4.5 GM in DEXTROSE 5% (D5W) ADV/MINI-BAG 50 ML IV SCH (18:58)
[2025-01-19 20:04] LABS: BASO # 0.1 10^3/uL (0.0-0.2); BASO % 0.8 % (0.0-1.0); EOS % 0.5 % (0.0-3.0); HEMOGLOBIN 8.1 g/dl (13.5-17.5); LYMPH # 0.5 10^3/uL (1.5-5.0); LYMPH % 6.7 % (24.0-44.0); MEAN CORPUSCULAR HEMOGLOBIN 27.3 pg (27.0-33.0); MEAN CORPUSCULAR HGB CONC 31.2 g/dl (32.0-36.5); MEAN CORPUSCULAR VOLUME 87.5 fl (80.0-96.0); MONO # 0.5 10^3/uL (0.0-0.8); NEUTROPHILS # 6.7 10^3/uL (1.5-8.5); NEUTROPHILS % 85.1 % (36.0-66.0); RED BLOOD COUNT 2.97 10^6/uL (4.30-6.10); WHITE BLOOD COUNT 7.9 10^3/uL (4.0-10.0)
[2025-01-19 20:11] LABS: PLATELET COUNT, AUTOMATED 93 10^3/uL (150-450)
[2025-01-19 20:15] LABS: INR 1.79; PARTIAL THROMBOPLASTIN TIME 41.3 SECONDS (24.8-34.2)
[2025-01-19 20:33] LABS: C REACTIVE PROTEIN QUANTITATIV 3.38 MG/DL (<1.0)
[2025-01-19 20:40] LABS: PROCALCITONIN 0.3 ng/ml
[2025-01-20] VITALS (23 sets, daily range): BP systolic 95–119; BP diastolic 51–66; TEMP 97.1–104.6; O2SAT 92–98
[2025-01-20] MEDS: IBUPROFEN 600MG TAB PO ONE (05:14)
[2025-01-20 06:01] LABS: BASO # 0.1 10^3/uL (0.0-0.2); BASO % 0.6 % (0.0-1.0); EOS % 0.4 % (0.0-3.0); HEMATOCRIT 24.7 % (42.0-52.0); HEMOGLOBIN 7.9 g/dl (13.5-17.5); LYMPH # 0.7 10^3/uL (1.5-5.0); LYMPH % 8.8 % (24.0-44.0); MEAN CORPUSCULAR HEMOGLOBIN 27.9 pg (27.0-33.0); MEAN CORPUSCULAR VOLUME 87.3 fl (80.0-96.0); MONO # 0.7 10^3/uL (0.0-0.8); MONO % 8.5 % (2.0-8.0); NEUTROPHILS # 6.4 10^3/uL (1.5-8.5); NEUTROPHILS % 80.9 % (36.0-66.0); RED BLOOD COUNT 2.83 10^6/uL (4.30-6.10); WHITE BLOOD COUNT 7.9 10^3/uL (4.0-10.0)
[2025-01-20 06:11] LABS: PLATELET COUNT, AUTOMATED 98 10^3/uL (150-450)
[2025-01-20 06:24] LABS: ALBUMIN 2.3 G/DL (3.2-5.2); ALKALINE PHOSPHATASE 212 U/L (40-129); ALT/SGPT 22 U/L (7.0-40); AST/SGOT 113 U/L (<34); BILIRUBIN,TOTAL 7.1 MG/DL (0.3-1.2); BLOOD UREA NITROGEN 7 MG/DL (9-23); CALCIUM LEVEL 7.4 MG/DL (8.5-10.1); CARBON DIOXIDE LEVEL 20 MMOL/L (20-31); CHLORIDE LEVEL 106 MMOL/L (98-107); CREATININE FOR GFR 0.85 MG/DL (0.70-1.30); GLOMERULAR FILTRATION RATE > 60.0 (>60); GLUCOSE, FASTING 94 MG/DL (60-100); MAGNESIUM LEVEL 1.6 MG/DL (1.8-2.4); POTASSIUM SERUM 4.1 MMOL/L (3.5-5.1); SODIUM LEVEL 136 MMOL/L (136-145); TOTAL PROTEIN 5.8 G/DL (5.7-8.2)
[2025-01-20 07:32] LABS: PHOSPHORUS LEVEL 1.6 MG/DL (2.5-4.9)
[2025-01-20] MEDS: LACTULOSE 20GM/30ML SYRUP UDC PO ONE (07:43)
[2025-01-20] MEDS: LR 1,000 ML IV ONE (07:43)
[2025-01-20] MEDS: diazePAM 5MG TABLET PO ONE (07:43)
[2025-01-20] MEDS: MAG SULF 1GM/100ML (MAG RUN) 1 GM in IV 1 EA IV SCH (07:44)
[2025-01-20] MEDS ORDERED: MIDODRINE 5 MG TAB PO SCH (08:00)
[2025-01-20] MEDS: predniSONE 20 MG TAB PO SCH (08:18)
[2025-01-20] MEDS: CALCIUM GLUCONATE 1,000 MG in DEXTROSE 5% (D5W) MINI-BAG PLU 100 ML IV ONE (11:05)
[2025-01-20] MEDS: diazePAM 5MG TABLET PO SCH (11:06)
[2025-01-20] MEDS: rifAXIMin 550 MG TAB (XIFAXAN) PO SCH (13:07)
[2025-01-20] MEDS: MULTIVITAMIN -ADULT INJECTION 10 ML, THIAMINE INJection 100 MG, FOLIC ACID 1 MG in NS (... IV ONE (14:59)
[2025-01-20] MEDS: LACTULOSE 20GM/30ML SYRUP UDC PO SCH (15:00)
[2025-01-20 19:59] LABS: KETONE, URINE AUTO RFX NEGATIVE (NEGATIVE); LEUKOCYTE ESTERASE UR AUTO RFX NEGATIVE (NEGATIVE); MUCUS, URINE RFX SMALL (NEGATIVE); NITRITE, URINE AUTO RFX NEGATIVE (NEGATIVE); RBC, URINE AUTO RFX 2 /HPF (0-3); SQUAM EPITHELIAL CELL UR AURFX 0 /HPF (0-6); WBC, URINE AUTO RFX 2 /HPF (0-3)
[2025-01-21] VITALS (24 sets, daily range): BP systolic 102–149; BP diastolic 52–73; TEMP 97.8–101.7; O2SAT 93–97
[2025-01-21 06:53] LABS: BASO % 0.6 % (0.0-1.0); EOS % 0.6 % (0.0-3.0); HEMATOCRIT 25.4 % (42.0-52.0); HEMOGLOBIN 8.1 g/dl (13.5-17.5); LYMPH # 0.7 10^3/uL (1.5-5.0); LYMPH % 9.4 % (24.0-44.0); MEAN CORPUSCULAR HEMOGLOBIN 28.2 pg (27.0-33.0); MEAN CORPUSCULAR HGB CONC 31.9 g/dl (32.0-36.5); MEAN CORPUSCULAR VOLUME 88.5 fl (80.0-96.0); MONO # 0.5 10^3/uL (0.0-0.8); MONO % 7.6 % (2.0-8.0); NEUTROPHILS # 5.7 10^3/uL (1.5-8.5); NEUTROPHILS % 81.4 % (36.0-66.0); PLATELET COUNT, AUTOMATED 118 10^3/uL (150-450); RED BLOOD COUNT 2.87 10^6/uL (4.30-6.10)
[2025-01-21 07:06] LABS: INR 2.04; PARTIAL THROMBOPLASTIN TIME 42.8 SECONDS (24.8-34.2); PROTHROMBIN TIME 23.2 SECONDS (12.5-14.5)
[2025-01-21 07:42] LABS: ALBUMIN 2.5 G/DL (3.2-5.2); ALKALINE PHOSPHATASE 190 U/L (40-129); ALT/SGPT 17 U/L (7.0-40); AST/SGOT 81 U/L (<34); BILIRUBIN,TOTAL 7.1 MG/DL (0.3-1.2); BLOOD UREA NITROGEN 11 MG/DL (9-23); CALCIUM LEVEL 7.8 MG/DL (8.5-10.1); CARBON DIOXIDE LEVEL 21 MMOL/L (20-31); CHLORIDE LEVEL 107 MMOL/L (98-107); CREATININE FOR GFR 0.66 MG/DL (0.70-1.30); GLOMERULAR FILTRATION RATE > 60.0 (>60); GLUCOSE, FASTING 97 MG/DL (60-100); MAGNESIUM LEVEL 1.5 MG/DL (1.8-2.4); PHOSPHORUS LEVEL 2.3 MG/DL (2.5-4.9); POTASSIUM SERUM 4.1 MMOL/L (3.5-5.1); SODIUM LEVEL 136 MMOL/L (136-145); TOTAL PROTEIN 5.9 G/DL (5.7-8.2)
[2025-01-21] MEDS: diazePAM 10MG/2ML SYRINGE IV ONE (08:23)
[2025-01-21] MEDS: KETOROLAC 30 MG/ML 1ML VIAL IV ONE ×2 (08:23→17:47)
[2025-01-21] MEDS: cefTRIAXone SOD 2 GM in DEXTROSE 5% (D5W) ADV/MINI-BAG 50 ML IV SCH (08:24)
[2025-01-21] MEDS: LR 1,000 ML IV ONE ×3 (08:50→17:48)
[2025-01-21] MEDS: MULTIVITAMIN -ADULT INJECTION 10 ML, THIAMINE INJection 100 MG, FOLIC ACID 1 MG in NS (... IV ONE (09:41)
[2025-01-21] MEDS: MAG SULF 1GM/100ML (MAG RUN) 1 GM in IV 1 EA IV SCH (09:51)
[2025-01-21] MEDS ORDERED: SIMETHICONE 80MG CHEW TAB PO PRN (13:10)
[2025-01-21] MEDS: SIMETHICONE 80MG CHEW TAB PO ONE (13:20)
[2025-01-21] MEDS ORDERED: VANCOMYCIN HCL 1 MG in IV FLUID PLACE HOLDER 1 EA IV SCH (14:55)
[2025-01-21] MEDS: PHYTONADIONE 5 MG TAB PO ONE (15:10)
[2025-01-21] MEDS: VANCOMYCIN HCL 2,000 MG, VIAL MATE ADAPTER 1 EACH in NS 500 ML IV ONE (16:44)
[2025-01-21] MEDS: LACTOBACILLUS ACIDOPHILUS CAP (BACID) PO SCH (17:47)
[2025-01-21] MEDS: BISACODYL 10MG SUPP PR SCH (21:00)
[2025-01-22] VITALS (9 sets, daily range): BP systolic 106–127; BP diastolic 55–70; TEMP 98.3–99.3; O2SAT 94–98
[2025-01-22] MEDS: VANCOMYCIN HCL 1,250 MG, VIAL MATE ADAPTER 1 EACH in NS 250 ML IV SCH (00:34)
[2025-01-22 06:59] LABS: BASO % 0.3 % (0.0-1.0); EOS % 0.3 % (0.0-3.0); HEMATOCRIT 24.5 % (42.0-52.0); HEMOGLOBIN 7.7 g/dl (13.5-17.5); LYMPH # 0.6 10^3/uL (1.5-5.0); LYMPH % 9.2 % (24.0-44.0); MEAN CORPUSCULAR HEMOGLOBIN 27.6 pg (27.0-33.0); MEAN CORPUSCULAR HGB CONC 31.4 g/dl (32.0-36.5); MEAN CORPUSCULAR VOLUME 87.8 fl (80.0-96.0); MONO # 0.7 10^3/uL (0.0-0.8); MONO % 11.4 % (2.0-8.0); NEUTROPHILS # 5.1 10^3/uL (1.5-8.5); NEUTROPHILS % 78.2 % (36.0-66.0); PLATELET COUNT, AUTOMATED 163 10^3/uL (150-450); RED BLOOD COUNT 2.79 10^6/uL (4.30-6.10); WHITE BLOOD COUNT 6.5 10^3/uL (4.0-10.0)
[2025-01-22 07:29] LABS: VANCOMYCIN LEVEL TROUGH 21.4 UG/ML (10.0-20.0)
[2025-01-22 07:30] LABS: ALBUMIN 2.9 G/DL (3.2-5.2); ALKALINE PHOSPHATASE 153 U/L (40-129); ALT/SGPT 17 U/L (7.0-40); AST/SGOT 79 U/L (<34); BILIRUBIN,TOTAL 7.5 MG/DL (0.3-1.2); BLOOD UREA NITROGEN 12 MG/DL (9-23); CALCIUM LEVEL 7.7 MG/DL (8.5-10.1); CARBON DIOXIDE LEVEL 19 MMOL/L (20-31); CHLORIDE LEVEL 108 MMOL/L (98-107); GLOMERULAR FILTRATION RATE > 60.0 (>60); GLUCOSE, FASTING 98 MG/DL (60-100); MAGNESIUM LEVEL 1.8 MG/DL (1.8-2.4); PHOSPHORUS LEVEL 2.2 MG/DL (2.5-4.9); POTASSIUM SERUM 3.6 MMOL/L (3.5-5.1); SODIUM LEVEL 137 MMOL/L (136-145); TOTAL PROTEIN 5.9 G/DL (5.7-8.2)
[2025-01-22] MEDS: VANCOMYCIN HCL 1,000 MG, VIAL MATE ADAPTER 1 EACH in NS 250 ML IV SCH (09:35)
[2025-01-23 03:00] VITALS: BP 134/64; TEMP 98.4; O2SAT 96
[2025-01-23 06:17] LABS: BASO % 0.3 % (0.0-1.0); EOS % 0.7 % (0.0-3.0); HEMATOCRIT 24.2 % (42.0-52.0); HEMOGLOBIN 7.5 g/dl (13.5-17.5); LYMPH # 0.9 10^3/uL (1.5-5.0); LYMPH % 14.5 % (24.0-44.0); MEAN CORPUSCULAR HEMOGLOBIN 27.4 pg (27.0-33.0); MEAN CORPUSCULAR VOLUME 88.3 fl (80.0-96.0); MONO # 0.7 10^3/uL (0.0-0.8); MONO % 12.2 % (2.0-8.0); NEUTROPHILS # 4.4 10^3/uL (1.5-8.5); NEUTROPHILS % 71.6 % (36.0-66.0); PLATELET COUNT, AUTOMATED 178 10^3/uL (150-450); RED BLOOD COUNT 2.74 10^6/uL (4.30-6.10); WHITE BLOOD COUNT 6.1 10^3/uL (4.0-10.0)
[2025-01-23 06:46] LABS: ALBUMIN 2.6 G/DL (3.2-5.2); ALKALINE PHOSPHATASE 152 U/L (40-129); ALT/SGPT 16 U/L (7.0-40); AST/SGOT 59 U/L (<34); BILIRUBIN,TOTAL 6.9 MG/DL (0.3-1.2); BLOOD UREA NITROGEN 11 MG/DL (9-23); CALCIUM LEVEL 7.7 MG/DL (8.5-10.1); CARBON DIOXIDE LEVEL 18 MMOL/L (20-31); CHLORIDE LEVEL 108 MMOL/L (98-107); CREATININE FOR GFR 0.62 MG/DL (0.70-1.30); GLOMERULAR FILTRATION RATE > 60.0 (>60); GLUCOSE, FASTING 113 MG/DL (60-100); MAGNESIUM LEVEL 1.7 MG/DL (1.8-2.4); PHOSPHORUS LEVEL 1.7 MG/DL (2.5-4.9); POTASSIUM SERUM 3.4 MMOL/L (3.5-5.1); SODIUM LEVEL 137 MMOL/L (136-145); TOTAL PROTEIN 5.7 G/DL (5.7-8.2)
[2025-01-23 07:26] VITALS: BP 125/68; TEMP 99.7; O2SAT 94
[2025-01-23] MEDS ORDERED: BOUDREAUX'S BUTT PASTE TOP PRN (08:00)
[2025-01-23] MEDS: MAG SULF 1GM/100ML (MAG RUN) 1 GM in IV 1 EA IV SCH (08:00)
[2025-01-23] MEDS: LACTULOSE 20GM/30ML SYRUP UDC PO SCH (09:00)
[2025-01-23] MEDS: MULTIVITAMINS/MINERALS THERAP 1 TAB PO SCH (09:35)
[2025-01-23] MEDS: FOLIC ACID 1MG TAB PO SCH (09:36)
[2025-01-23] MEDS: THIAMINE 100 MG TAB PO SCH (09:36)
[2025-01-23] MEDS ORDERED: SODIUM BICARBONATE 150 MEQ in STERILE WATER LITER BAG 1,000 ML IV SCH (10:00)
[2025-01-23] MEDS: POTASSIUM PHOSPHATE INJ 30 MMOL in D5W 500 ML IV ONE (11:50)
[2025-01-23] MEDS: SODIUM BICARBONATE 150 MEQ in STERILE WATER LITER BAG 1,000 ML IV SCH (11:51)
[2025-01-23 16:19] VITALS: BP 127/68; TEMP 97.9; O2SAT 95
[2025-01-23 20:00] VITALS: BP 130/72; TEMP 98.6; O2SAT 96
[2025-01-23 20:33] LABS: ALBUMIN 2.6 G/DL (3.2-5.2); ALKALINE PHOSPHATASE 180 U/L (40-129); ALT/SGPT 17 U/L (7.0-40); AST/SGOT 58 U/L (<34); BILIRUBIN,TOTAL 6.6 MG/DL (0.3-1.2); BLOOD UREA NITROGEN 9 MG/DL (9-23); CALCIUM LEVEL 7.5 MG/DL (8.5-10.1); CARBON DIOXIDE LEVEL 19 MMOL/L (20-31); CHLORIDE LEVEL 108 MMOL/L (98-107); CREATININE FOR GFR 0.61 MG/DL (0.70-1.30); GLOMERULAR FILTRATION RATE > 60.0 (>60); GLUCOSE, FASTING 178 MG/DL (60-100); MAGNESIUM LEVEL 1.7 MG/DL (1.8-2.4); PHOSPHORUS LEVEL 2.8 MG/DL (2.5-4.9); SODIUM LEVEL 137 MMOL/L (136-145); TOTAL PROTEIN 5.8 G/DL (5.7-8.2)
[2025-01-24 07:14] LABS: BASO % 0.3 % (0.0-1.0); EOS % 0.6 % (0.0-3.0); HEMATOCRIT 25.1 % (42.0-52.0); HEMOGLOBIN 7.7 g/dl (13.5-17.5); LYMPH % 15.7 % (24.0-44.0); MEAN CORPUSCULAR HEMOGLOBIN 27.7 pg (27.0-33.0); MEAN CORPUSCULAR HGB CONC 30.7 g/dl (32.0-36.5); MEAN CORPUSCULAR VOLUME 90.3 fl (80.0-96.0); MONO # 0.6 10^3/uL (0.0-0.8); NEUTROPHILS # 4.8 10^3/uL (1.5-8.5); NEUTROPHILS % 73.8 % (36.0-66.0); PLATELET COUNT, AUTOMATED 237 10^3/uL (150-450); RED BLOOD COUNT 2.78 10^6/uL (4.30-6.10); WHITE BLOOD COUNT 6.5 10^3/uL (4.0-10.0)
[2025-01-24 07:25] LABS: INR 1.87; PARTIAL THROMBOPLASTIN TIME 37.9 SECONDS (24.8-34.2); PROTHROMBIN TIME 21.7 SECONDS (12.5-14.5)
[2025-01-24 07:45] LABS: ALBUMIN 2.4 G/DL (3.2-5.2); ALKALINE PHOSPHATASE 183 U/L (40-129); ALT/SGPT 16 U/L (7.0-40); AST/SGOT 55 U/L (<34); BILIRUBIN,TOTAL 5.7 MG/DL (0.3-1.2); BLOOD UREA NITROGEN 11 MG/DL (9-23); CALCIUM LEVEL 7.5 MG/DL (8.5-10.1); CARBON DIOXIDE LEVEL 22 MMOL/L (20-31); CHLORIDE LEVEL 107 MMOL/L (98-107); CREATININE FOR GFR 0.58 MG/DL (0.70-1.30); GLOMERULAR FILTRATION RATE > 60.0 (>60); GLUCOSE, FASTING 122 MG/DL (60-100); MAGNESIUM LEVEL 1.6 MG/DL (1.8-2.4); PHOSPHORUS LEVEL 2.2 MG/DL (2.5-4.9); POTASSIUM SERUM 3.6 MMOL/L (3.5-5.1); SODIUM LEVEL 137 MMOL/L (136-145); TOTAL PROTEIN 5.6 G/DL (5.7-8.2)
[2025-01-24 07:46] VITALS: BP 123/68; TEMP 97.1; O2SAT 98
[2025-01-24] MEDS: CALCIUM GLUCONATE 1,000 MG in DEXTROSE 5% (D5W) MINI-BAG PLU 100 ML IV ONE (10:20)
[2025-01-24] MEDS: MAG SULF 1GM/100ML (MAG RUN) 1 GM in IV 1 EA IV SCH (11:40)
[2025-01-24] MEDS: POTASSIUM PHOSPHATE INJ 30 MMOL in D5W 500 ML IV ONE (11:40)
[2025-01-24 12:00] VITALS: BP 127/73; TEMP 97.8; O2SAT 95
[2025-01-24 16:00] VITALS: BP 130/73; TEMP 97.9; O2SAT 96
[2025-01-24 19:55] VITALS: BP 122/69; TEMP 98.1; O2SAT 97
[2025-01-24 23:28] VITALS: BP 122/73; TEMP 98.5; O2SAT 97
[2025-01-25 05:30] VITALS: BP 120/72; TEMP 98.1; O2SAT 96; O2SAT 97
[2025-01-25 05:58] LABS: BASO % 0.3 % (0.0-1.0); EOS # 0.1 10^3/uL (0.0-0.5); EOS % 0.8 % (0.0-3.0); HEMOGLOBIN 7.7 g/dl (13.5-17.5); LYMPH # 1.3 10^3/uL (1.5-5.0); LYMPH % 16.1 % (24.0-44.0); MEAN CORPUSCULAR HEMOGLOBIN 27.1 pg (27.0-33.0); MEAN CORPUSCULAR HGB CONC 30.8 g/dl (32.0-36.5); MONO # 0.6 10^3/uL (0.0-0.8); MONO % 7.9 % (2.0-8.0); NEUTROPHILS # 5.8 10^3/uL (1.5-8.5); NEUTROPHILS % 74.3 % (36.0-66.0); PLATELET COUNT, AUTOMATED 288 10^3/uL (150-450); RED BLOOD COUNT 2.84 10^6/uL (4.30-6.10); WHITE BLOOD COUNT 7.8 10^3/uL (4.0-10.0)
[2025-01-25 06:28] LABS: ALBUMIN 2.3 G/DL (3.2-5.2); ALKALINE PHOSPHATASE 171 U/L (40-129); ALT/SGPT 18 U/L (7.0-40); AST/SGOT 51 U/L (<34); BILIRUBIN,TOTAL 5.2 MG/DL (0.3-1.2); BLOOD UREA NITROGEN 9 MG/DL (9-23); CALCIUM LEVEL 7.7 MG/DL (8.5-10.1); CARBON DIOXIDE LEVEL 20 MMOL/L (20-31); CHLORIDE LEVEL 109 MMOL/L (98-107); CREATININE FOR GFR 0.65 MG/DL (0.70-1.30); GLOMERULAR FILTRATION RATE > 60.0 (>60); GLUCOSE, FASTING 106 MG/DL (60-100); MAGNESIUM LEVEL 1.6 MG/DL (1.8-2.4); POTASSIUM SERUM 4.1 MMOL/L (3.5-5.1); SODIUM LEVEL 139 MMOL/L (136-145); TOTAL PROTEIN 5.4 G/DL (5.7-8.2)
[2025-01-25] MEDS: NEUTRA-PHOS 1.5 GM PACKET PO SCH (10:30)
[2025-01-25 12:46] VITALS: BP 138/79; TEMP 98.1; O2SAT 96
[2025-01-25] MEDS: diazePAM 5MG TABLET PO SCH (13:47)
[2025-01-25] MEDS: PANTOPRAZOLE 40MG TAB (PROTONIX) PO SCH (13:48)
[2025-01-25] MEDS: MAGNESIUM OXIDE 400MG TAB (MAG-OX) PO SCH (17:36)
[2025-01-25 19:57] VITALS: BP 113/63; TEMP 98.6; O2SAT 96
[2025-01-25] MEDS ORDERED: PANTOPRAZOLE 40MG TAB (PROTONIX) PO SCH (21:00)
[2025-01-26 04:11] VITALS: BP 121/71; TEMP 98.2; O2SAT 97
[2025-01-26 06:00] LABS: BASO % 0.2 % (0.0-1.0); EOS # 0.1 10^3/uL (0.0-0.5); EOS % 0.6 % (0.0-3.0); HEMATOCRIT 24.7 % (42.0-52.0); HEMOGLOBIN 7.6 g/dl (13.5-17.5); LYMPH # 1.6 10^3/uL (1.5-5.0); LYMPH % 15.8 % (24.0-44.0); MEAN CORPUSCULAR HEMOGLOBIN 27.5 pg (27.0-33.0); MEAN CORPUSCULAR HGB CONC 30.8 g/dl (32.0-36.5); MEAN CORPUSCULAR VOLUME 89.5 fl (80.0-96.0); MONO # 0.7 10^3/uL (0.0-0.8); MONO % 6.5 % (2.0-8.0); NEUTROPHILS # 7.9 10^3/uL (1.5-8.5); NEUTROPHILS % 76.1 % (36.0-66.0); PLATELET COUNT, AUTOMATED 303 10^3/uL (150-450); RED BLOOD COUNT 2.76 10^6/uL (4.30-6.10); WHITE BLOOD COUNT 10.4 10^3/uL (4.0-10.0)
[2025-01-26 06:25] LABS: ALBUMIN 2.2 G/DL (3.2-5.2); ALKALINE PHOSPHATASE 180 U/L (40-129); ALT/SGPT 17 U/L (7.0-40); AST/SGOT 52 U/L (<34); BILIRUBIN,TOTAL 4.8 MG/DL (0.3-1.2); BLOOD UREA NITROGEN 11 MG/DL (9-23); CALCIUM LEVEL 7.5 MG/DL (8.5-10.1); CARBON DIOXIDE LEVEL 23 MMOL/L (20-31); CHLORIDE LEVEL 108 MMOL/L (98-107); CREATININE FOR GFR 0.61 MG/DL (0.70-1.30); GLOMERULAR FILTRATION RATE > 60.0 (>60); GLUCOSE, FASTING 113 MG/DL (60-100); MAGNESIUM LEVEL 1.5 MG/DL (1.8-2.4); SODIUM LEVEL 139 MMOL/L (136-145); TOTAL PROTEIN 5.2 G/DL (5.7-8.2)
[2025-01-26] MEDS: LACTULOSE 20GM/30ML SYRUP UDC PO SCH (09:00)
[2025-01-26 12:30] VITALS: BP 122/70; TEMP 98.1; O2SAT 97
[2025-01-26 14:35] VITALS: BP 128/72; TEMP 98.6; O2SAT 96
[2025-01-26 14:50] VITALS: BP 129/72; TEMP 98.1; O2SAT 95
[2025-01-26 15:41] VITALS: BP 130/73; TEMP 98.2; O2SAT 95
[2025-01-26] MEDS: FUROSEMIDE 40MG/4ML VIAL IV ONE (19:30)
[2025-01-26 19:50] VITALS: BP_SYST 115; BP_SYST 140; BP_DIAS 56; BP_DIAS 61; TEMP 98.4; O2SAT 95
[2025-01-27 04:12] VITALS: BP 123/73; TEMP 98.1; O2SAT 97
[2025-01-27 05:01] LABS: BASO % 0.2 % (0.0-1.0); EOS # 0.1 10^3/uL (0.0-0.5); EOS % 0.6 % (0.0-3.0); HEMATOCRIT 25.5 % (42.0-52.0); LYMPH # 1.7 10^3/uL (1.5-5.0); LYMPH % 14.1 % (24.0-44.0); MEAN CORPUSCULAR HEMOGLOBIN 27.5 pg (27.0-33.0); MEAN CORPUSCULAR HGB CONC 31.4 g/dl (32.0-36.5); MEAN CORPUSCULAR VOLUME 87.6 fl (80.0-96.0); MONO # 0.6 10^3/uL (0.0-0.8); NEUTROPHILS # 9.6 10^3/uL (1.5-8.5); NEUTROPHILS % 79.3 % (36.0-66.0); PLATELET COUNT, AUTOMATED 330 10^3/uL (150-450); RED BLOOD COUNT 2.91 10^6/uL (4.30-6.10); WHITE BLOOD COUNT 12.1 10^3/uL (4.0-10.0)
[2025-01-27 05:34] LABS: ALBUMIN 2.2 G/DL (3.2-5.2); ALKALINE PHOSPHATASE 168 U/L (40-129); ALT/SGPT 20 U/L (7.0-40); AST/SGOT 56 U/L (<34); BILIRUBIN,TOTAL 5.3 MG/DL (0.3-1.2); BLOOD UREA NITROGEN 10 MG/DL (9-23); CALCIUM LEVEL 7.6 MG/DL (8.5-10.1); CARBON DIOXIDE LEVEL 23 MMOL/L (20-31); CHLORIDE LEVEL 108 MMOL/L (98-107); CREATININE FOR GFR 0.63 MG/DL (0.70-1.30); GLOMERULAR FILTRATION RATE > 60.0 (>60); GLUCOSE, FASTING 134 MG/DL (60-100); MAGNESIUM LEVEL 1.6 MG/DL (1.8-2.4); PHOSPHORUS LEVEL 2.8 MG/DL (2.5-4.9); POTASSIUM SERUM 4.2 MMOL/L (3.5-5.1); SODIUM LEVEL 139 MMOL/L (136-145); TOTAL PROTEIN 5.3 G/DL (5.7-8.2)
[2025-01-27] MEDS: diazePAM 5MG TABLET PO SCH (09:36)
[2025-01-27] MEDS ORDERED: FOLI1TAB11 PO (10:51)
[2025-01-27] MEDS ORDERED: POTA10TA67 PO (10:51)
[2025-01-27] MEDS ORDERED: SPIR-10 PO (10:51)
[2025-01-27] MEDS ORDERED: PANT40TA29 PO (10:51)
[2025-01-27] MEDS ORDERED: THIA100TA PO (10:51)
[2025-01-27] MEDS ORDERED: MAGN400T2 PO (10:51)
[2025-01-27] MEDS ORDERED: LACT20EL PO (10:51)
[2025-01-27] MEDS ORDERED: XIFA550T PO (10:51)
[2025-01-27] MEDS ORDERED: LASI20TA3 PO (10:51)
[2025-01-27] MEDS ORDERED: PRED20TA PO (10:51)
[2025-01-27] MEDS ORDERED: DIAZ5TAB PO (10:51)
== END 2025-01-27 12:08 | disposition home health service (06) | DRG 815 ==
LOC: EDBD 14:04 → M ED 14:04 → M ED INP 17:58 → EEVIPCON 17:58 → M ICU 21:48 → M MS5PR 01-18 14:53 → M ICU 01-20 08:40 → M PCU 01-20 18:28 → M MSPAV 01-24 23:20
PROVIDERS: ADMIT Internal Medicine Pulmonary Disease; ATTEND Internal Medicine Nephrology
PROC: 30233N1 Transfusion of Nonautologous Red Blood Cells into Peripheral Vein, Percutaneous Approach (ICD-10-PCS; principal; 2025-01-16)
PROC: 30233J1 Transfusion of Nonautologous Serum Albumin into Peripheral Vein, Percutaneous Approach (ICD-10-PCS; 2025-01-18)
PROC: 30233K1 Transfusion of Nonautologous Frozen Plasma into Peripheral Vein, Percutaneous Approach (ICD-10-PCS; 2025-01-19)
PROC: B246ZZZ Ultrasonography of Right and Left Heart (ICD-10-PCS; 2025-01-22)
DX: T68.XXXA Hypothermia, initial encounter (principal); A41.02 Sepsis due to Methicillin resistant Staphylococcus aureus; G93.41 Metabolic encephalopathy; E87.20 Acidosis, unspecified; D68.9 Coagulation defect, unspecified; K76.6 Portal hypertension; D69.6 Thrombocytopenia, unspecified; E83.42 Hypomagnesemia; E83.51 Hypocalcemia; K56.7 Ileus, unspecified; L89.92 Pressure ulcer of unspecified site, stage 2; K70.30 Alcoholic cirrhosis of liver without ascites; K70.10 Alcoholic hepatitis without ascites; K76.82 Hepatic encephalopathy; W19.XXXA Unspecified fall, initial encounter; Y92.9 Unspecified place or not applicable; Z87.891 Personal history of nicotine dependence; M54.9 Dorsalgia, unspecified; E87.6 Hypokalemia; D64.9 Anemia, unspecified; F10.239 Alcohol dependence with withdrawal, unspecified; B95.62 Methicillin resistant Staphylococcus aureus infection as the cause of diseases classified elsewhere; E83.119 Hemochromatosis, unspecified; R19.7 Diarrhea, unspecified; T47.3X5A Adverse effect of saline and osmotic laxatives, initial encounter

== ENCOUNTER 2025-01-27 12:16 | Outpatient (CLI) | payer MEDICAID ==
[~2025-01-27] VITALS: Ht 180.3 cm; Wt 100.6 kg
[~2025-01-27 12:16] MED LIST changes: +DIAZ5TAB PO; +POTA10TA67 PO
[2025-01-27 12:31] VITALS: BP 145/76; O2SAT 99
[2025-01-27] MEDS: DALBAVANCIN 1,500 MG in D5W 250 ML IV ONE (13:21)
[2025-01-27 14:00] VITALS: BP 146/79; O2SAT 98
== END 2025-01-27 14:00 ==
LOC: M INFU 12:16
PROVIDERS: ATTEND Internal Medicine Nephrology
DX: A41.02 Sepsis due to Methicillin resistant Staphylococcus aureus (principal)
CPT/HCPCS: 96365; J0875

== ENCOUNTER 2025-01-30 16:42 | Emergency (ER) | payer MEDICAID ==
[~2025-01-30] VITALS: Ht 180.3 cm; Wt 90.9 kg
[2025-01-30 18:10] LABS: BASO % 0.1 % (0.0-1.0); EOS % 0.2 % (0.0-3.0); HEMATOCRIT 25.9 % (42.0-52.0); HEMOGLOBIN 8.4 g/dl (13.5-17.5); LYMPH # 0.5 10^3/uL (1.5-5.0); LYMPH % 3.8 % (24.0-44.0); MEAN CORPUSCULAR HEMOGLOBIN 28.4 pg (27.0-33.0); MEAN CORPUSCULAR HGB CONC 32.4 g/dl (32.0-36.5); MEAN CORPUSCULAR VOLUME 87.5 fl (80.0-96.0); MONO # 0.3 10^3/uL (0.0-0.8); MONO % 2.2 % (2.0-8.0); NEUTROPHILS # 11.5 10^3/uL (1.5-8.5); NEUTROPHILS % 92.8 % (36.0-66.0); PLATELET COUNT, AUTOMATED 280 10^3/uL (150-450); RED BLOOD COUNT 2.96 10^6/uL (4.30-6.10); WHITE BLOOD COUNT 12.4 10^3/uL (4.0-10.0)
[2025-01-30 18:41] LABS: LIPASE 59 U/L (12-53)
[2025-01-30 18:42] LABS: ETHYL ALCOHOL (ETHANOL) < 0.003 % (0.000-0.010)
[2025-01-30 18:43] LABS: ALBUMIN 2.3 G/DL (3.2-5.2); ALKALINE PHOSPHATASE 135 U/L (40-129); ALT/SGPT 30 U/L (7.0-40); AST/SGOT 111 U/L (<34); BILIRUBIN,DIRECT 3.3 MG/DL (<0.4); BILIRUBIN,TOTAL 4.8 MG/DL (0.3-1.2); BLOOD UREA NITROGEN 24 MG/DL (9-23); CALCIUM LEVEL 6.8 MG/DL (8.5-10.1); CARBON DIOXIDE LEVEL 19 MMOL/L (20-31); CHLORIDE LEVEL 111 MMOL/L (98-107); CREATININE FOR GFR 0.92 MG/DL (0.70-1.30); GLOMERULAR FILTRATION RATE > 60.0 (>60); GLUCOSE, FASTING 179 MG/DL (60-100); POTASSIUM SERUM 3.8 MMOL/L (3.5-5.1); SODIUM LEVEL 140 MMOL/L (136-145); TOTAL PROTEIN 5.5 G/DL (5.7-8.2)
[2025-01-30 20:00] VITALS: BP 110/59; TEMP 97.9; O2SAT 96
== END 2025-01-30 20:00 | disposition home or self-care (01) ==
LOC: M ED 16:42
DX: R11.10 Vomiting, unspecified (principal); K74.60 Unspecified cirrhosis of liver; Z87.891 Personal history of nicotine dependence; Z79.899 Other long term (current) drug therapy

== ENCOUNTER → 2025-02-10 | Outpatient (REF) | payer MEDICAID ==
[2025-02-10 19:11] LABS: BASO % 0.1 % (0.0-1.0); EOS # 0.1 10^3/uL (0.0-0.5); EOS % 0.3 % (0.0-3.0); HEMATOCRIT 31.3 % (42.0-52.0); HEMOGLOBIN 9.8 g/dl (13.5-17.5); LYMPH % 5.3 % (24.0-44.0); MEAN CORPUSCULAR HEMOGLOBIN 27.6 pg (27.0-33.0); MEAN CORPUSCULAR HGB CONC 31.3 g/dl (32.0-36.5); MEAN CORPUSCULAR VOLUME 88.2 fl (80.0-96.0); MONO # 0.8 10^3/uL (0.0-0.8); MONO % 4.2 % (2.0-8.0); NEUTROPHILS # 16.2 10^3/uL (1.5-8.5); NEUTROPHILS % 89.2 % (36.0-66.0); PLATELET COUNT, AUTOMATED 213 10^3/uL (150-450); RED BLOOD COUNT 3.55 10^6/uL (4.30-6.10); WHITE BLOOD COUNT 18.2 10^3/uL (4.0-10.0)
[2025-02-10 19:30] LABS: TOTAL 25(OH) VITAMIN D 30.7 NG/ML (20.0-100.0)
[2025-02-10 19:33] LABS: ALBUMIN 3.3 G/DL (3.2-5.2); ALKALINE PHOSPHATASE 242 U/L (40-129); ALT/SGPT 56 U/L (7.0-40); AST/SGOT 88 U/L (<34); BILIRUBIN,TOTAL 3.3 MG/DL (0.3-1.2); BLOOD UREA NITROGEN 17 MG/DL (9-23); CALCIUM LEVEL 8.5 MG/DL (8.5-10.1); CARBON DIOXIDE LEVEL 24 MMOL/L (20-31); CHLORIDE LEVEL 100 MMOL/L (98-107); CREATININE FOR GFR 0.77 MG/DL (0.70-1.30); GLOMERULAR FILTRATION RATE > 60.0 (>60); GLUCOSE, FASTING 106 MG/DL (60-100); MAGNESIUM LEVEL 1.5 MG/DL (1.8-2.4); POTASSIUM SERUM 3.5 MMOL/L (3.5-5.1); SODIUM LEVEL 139 MMOL/L (136-145); TOTAL PROTEIN 6.9 G/DL (5.7-8.2)
== END ==
LOC: M LABDRWAD 17:37 → M LAB REF 17:37
PROVIDERS: ATTEND Internal Medicine
DX: D64.9 Anemia, unspecified (principal); E83.42 Hypomagnesemia; E83.51 Hypocalcemia

== ENCOUNTER → 2025-02-11 | Outpatient (CLI) | payer MEDICAID | LOC: M LAB 14:09 | PROVIDERS: ATTEND Internal Medicine | DX: E83.42 Hypomagnesemia (principal); E83.51 Hypocalcemia; D64.9 Anemia, unspecified ==

== ENCOUNTER → 2025-02-17 | Outpatient (CLI) | payer MEDICAID ==
[2025-02-17 11:32] LABS: IONIZED CALCIUM 4.1 MG/DL (4.5-5.3)
[2025-02-17 11:38] LABS: BASO % 0.3 % (0.0-1.0); EOS # 0.1 10^3/uL (0.0-0.5); EOS % 0.9 % (0.0-3.0); HEMATOCRIT 30.5 % (42.0-52.0); HEMOGLOBIN 9.8 g/dl (13.5-17.5); LYMPH # 0.5 10^3/uL (1.5-5.0); LYMPH % 5.1 % (24.0-44.0); MEAN CORPUSCULAR HEMOGLOBIN 27.4 pg (27.0-33.0); MEAN CORPUSCULAR HGB CONC 32.1 g/dl (32.0-36.5); MEAN CORPUSCULAR VOLUME 85.2 fl (80.0-96.0); MONO # 0.3 10^3/uL (0.0-0.8); MONO % 2.4 % (2.0-8.0); NEUTROPHILS # 9.6 10^3/uL (1.5-8.5); NEUTROPHILS % 90.5 % (36.0-66.0); PLATELET COUNT, AUTOMATED 111 10^3/uL (150-450); RED BLOOD COUNT 3.58 10^6/uL (4.30-6.10); WHITE BLOOD COUNT 10.6 10^3/uL (4.0-10.0)
[2025-02-17 12:06] LABS: ALBUMIN 3.5 G/DL (3.2-5.2); ALKALINE PHOSPHATASE 237 U/L (40-129); ALT/SGPT 56 U/L (7.0-40); AST/SGOT 123 U/L (<34); BILIRUBIN,TOTAL 3.3 MG/DL (0.3-1.2); BLOOD UREA NITROGEN 10 MG/DL (9-23); CALCIUM LEVEL 8.3 MG/DL (8.5-10.1); CARBON DIOXIDE LEVEL 24 MMOL/L (20-31); CHLORIDE LEVEL 101 MMOL/L (98-107); CREATININE FOR GFR 0.57 MG/DL (0.70-1.30); GLOMERULAR FILTRATION RATE > 60.0 (>60); GLUCOSE, FASTING 125 MG/DL (60-100); MAGNESIUM LEVEL 1.6 MG/DL (1.8-2.4); POTASSIUM SERUM 3.1 MMOL/L (3.5-5.1); SODIUM LEVEL 140 MMOL/L (136-145); TOTAL PROTEIN 7.1 G/DL (5.7-8.2)
[2025-02-17 12:09] LABS: TOTAL 25(OH) VITAMIN D 16.5 NG/ML (20.0-100.0)
== END ==
LOC: M LAB 11:08
PROVIDERS: ATTEND Internal Medicine
DX: D64.9 Anemia, unspecified (principal)

== ENCOUNTER 2025-03-06 21:41 | Inpatient (IN) | payer MEDICAID, OTHER ==
[~2025-03-06] VITALS: Ht 180.3 cm; Wt 87.0 kg
[2025-03-06] MEDS: THIAMINE 100 MG TAB PO SCH (21:00)
[2025-03-06] MEDS ORDERED: LORazepam 2 MG TAB PO PRN (22:45)
[2025-03-06 23:07] LABS: HEMATOCRIT 33.9 % (42.0-52.0); HEMOGLOBIN 11.1 g/dl (13.5-17.5); MEAN CORPUSCULAR HEMOGLOBIN 27.3 pg (27.0-33.0); MEAN CORPUSCULAR HGB CONC 32.7 g/dl (32.0-36.5); MEAN CORPUSCULAR VOLUME 83.5 fl (80.0-96.0); RED BLOOD COUNT 4.06 10^6/uL (4.30-6.10); WHITE BLOOD COUNT 9.9 10^3/uL (4.0-10.0)
[2025-03-06 23:27] LABS: SALICYLATE LEVEL < 3.0 MG/DL (<30)
[2025-03-06 23:40] LABS: ALBUMIN 3.2 G/DL (3.2-5.2); ALKALINE PHOSPHATASE 359 U/L (40-129); ALT/SGPT 38 U/L (7.0-40); AST/SGOT 153 U/L (<34); BILIRUBIN,DIRECT 2.2 MG/DL (<0.4); BILIRUBIN,TOTAL 3.1 MG/DL (0.3-1.2); BLOOD UREA NITROGEN 8 MG/DL (9-23); CALCIUM LEVEL 7.4 MG/DL (8.5-10.1); CARBON DIOXIDE LEVEL 19 MMOL/L (20-31); CHLORIDE LEVEL 99 MMOL/L (98-107); CREATININE FOR GFR 0.74 MG/DL (0.70-1.30); GLOMERULAR FILTRATION RATE > 60.0 (>60); GLUCOSE, FASTING 196 MG/DL (60-100); POTASSIUM SERUM 2.5 MMOL/L (3.5-5.1); SODIUM LEVEL 136 MMOL/L (136-145); THYROID STIMULATING HORMONE 1.469 uIU/ML (0.55-4.78); TOTAL PROTEIN 6.7 G/DL (5.7-8.2)
[2025-03-06 23:53] LABS: PLATELET COUNT, AUTOMATED 89 10^3/uL (150-450)
[2025-03-06 23:56] LABS: MAGNESIUM LEVEL 1.2 MG/DL (1.8-2.4)
[2025-03-06 23:59] LABS: ETHYL ALCOHOL (ETHANOL) 0.322 % (0.000-0.010)
[2025-03-07] MEDS: KCL 10MEQ/100ML SWI (KRUN) 10 MEQ in IV 1 EA IV ONE
[2025-03-07] MEDS: MAG SULF 1GM/100ML (MAG RUN) 1 GM in IV 1 EA IV ONE ×3 (00:11→13:34)
[2025-03-07] MEDS: POTASSIUM CHLORIDE 10MEQ SR TABLET PO ONE (00:12)
[2025-03-07] MEDS ORDERED: MAALOX 30 ML SUSP *UDC PO PRN (01:45)
[2025-03-07] MEDS ORDERED: LACT20EL PO (01:51)
[2025-03-07] MEDS ORDERED: POTA-136 PO (01:51)
[2025-03-07] MEDS ORDERED: FURO20TA2 PO (01:51)
[2025-03-07] MEDS ORDERED: B-1100TA2 PO (01:51)
[2025-03-07] MEDS ORDERED: HOME MED LIST COMPLETE! XX SCH (01:55)
[2025-03-07 01:56] LABS: AMPHETAMINES LEVEL URINE NEGATIVE (NEGATIVE); BARBITURATES URINE NEGATIVE (NEGATIVE); COCAINE METABOLITE URINE NEGATIVE (NEGATIVE); METHADONE URINE NEGATIVE (NEGATIVE); OPIATES URINE NEGATIVE (NEGATIVE); PHENCYCLIDINE URINE NEGATIVE (NEGATIVE)
[2025-03-07 02:02] LABS: BENZODIAZEPINES URINE POSITIVE (NEGATIVE); CANNABINOIDS URINE POSITIVE (NEGATIVE)
[2025-03-07 03:06] LABS: ABG BASE EXCESS -2.7 (-2.0-2.0); ABG O2 SATURATION 94.8 % (95.0-99.0); ABG PARTIAL PRESSURE CO2 28.3 mmHg (35.0-45.0); ABG PARTIAL PRESSURE O2 80.1 mmHg (75.0-100.0); ABG STANDARD HCO3 22.1 MMOL/L. (22.0-26.0); ABG TOTAL CO2 20.9 MMOL/L (22.0-29.0); ABG pH (ARTERIAL) 7.467 UNITS (7.350-7.450)
[2025-03-07 03:16] LABS: BLOOD UREA NITROGEN 7 MG/DL (9-23); CALCIUM LEVEL 7.2 MG/DL (8.5-10.1); CARBON DIOXIDE LEVEL 19 MMOL/L (20-31); CHLORIDE LEVEL 100 MMOL/L (98-107); CREATININE FOR GFR 0.69 MG/DL (0.70-1.30); GLOMERULAR FILTRATION RATE > 60.0 (>60); GLUCOSE, FASTING 103 MG/DL (60-100); MAGNESIUM LEVEL 1.4 MG/DL (1.8-2.4); POTASSIUM SERUM 2.9 MMOL/L (3.5-5.1); SODIUM LEVEL 135 MMOL/L (136-145)
[2025-03-07] MEDS: chlordiazePOXIDE 25 MG CAP PO SCH (03:30)
[2025-03-07] MEDS: POTASSIUM CHLORIDE 10MEQ SR TABLET PO SCH ×2 (04:06→09:01)
[2025-03-07] MEDS: MAGNESIUM OXIDE 400MG TAB (MAG-OX) PO ONE (04:06)
[2025-03-07] MEDS: CALCIUM CARBONATE 500 MG CHEW U/D PO ONE (04:07)
[2025-03-07] MEDS: KCL 10MEQ/100ML SWI (KRUN) 10 MEQ in IV 1 EA IV SCH (05:00)
[2025-03-07] MEDS: ONDANSETRON 4MG 2ML VIAL IV PRN (06:37)
[2025-03-07] MEDS: CALCIUM CARBONATE 500 MG CHEW U/D PO SCH (07:44)
[2025-03-07 07:46] LABS: BLOOD UREA NITROGEN 7 MG/DL (9-23); CALCIUM LEVEL 7.4 MG/DL (8.5-10.1); CARBON DIOXIDE LEVEL 21 MMOL/L (20-31); CHLORIDE LEVEL 99 MMOL/L (98-107); CREATININE FOR GFR 0.66 MG/DL (0.70-1.30); GLOMERULAR FILTRATION RATE > 60.0 (>60); GLUCOSE, FASTING 121 MG/DL (60-100); MAGNESIUM LEVEL 1.7 MG/DL (1.8-2.4); POTASSIUM SERUM 3.6 MMOL/L (3.5-5.1); SODIUM LEVEL 134 MMOL/L (136-145)
[2025-03-07] MEDS: MULTIVITAMINS/MINERALS THERAP 1 TAB PO SCH (08:59)
[2025-03-07] MEDS: LACTULOSE 20GM/30ML SYRUP UDC PO SCH (08:59)
[2025-03-07] MEDS: THIAMINE 100 MG TAB PO SCH (08:59)
[2025-03-07] MEDS ORDERED: MULTIVITAMINS/MINERALS THERAP 1 TAB PO SCH (09:00)
[2025-03-07] MEDS: FUROSEMIDE 20 MG TAB PO SCH (09:00)
[2025-03-07] MEDS ORDERED: FOLIC ACID 1MG TAB PO SCH (09:00)
[2025-03-07] MEDS: FOLIC ACID 1MG TAB PO SCH (09:01)
[2025-03-07] MEDS: PANTOPRAZOLE 40MG TAB (PROTONIX) PO SCH (09:01)
[2025-03-07] MEDS: rifAXIMin 550 MG TAB (XIFAXAN) PO SCH (09:02)
[2025-03-07] MEDS: MAGNESIUM OXIDE 400MG TAB (MAG-OX) PO SCH ×2 (09:02→13:55)
[2025-03-07] MEDS: NICOTINE 21MG/24HR 1 EA TRANSDERMAL TD PRN (09:09)
[2025-03-07] MEDS: OXAZEPAM 10MG CAP PO ONE (09:46)
[2025-03-07] MEDS: LORazepam 2 MG TAB PO PRN (11:19)
[2025-03-07 13:00] VITALS: BP 136/62; TEMP 100.3; O2SAT 95
[2025-03-07 13:12] LABS: BLOOD UREA NITROGEN 7 MG/DL (9-23); CARBON DIOXIDE LEVEL 23 MMOL/L (20-31); CHLORIDE LEVEL 98 MMOL/L (98-107); CREATININE FOR GFR 0.68 MG/DL (0.70-1.30); GLOMERULAR FILTRATION RATE > 60.0 (>60); GLUCOSE, FASTING 151 MG/DL (60-100); MAGNESIUM LEVEL 1.5 MG/DL (1.8-2.4); POTASSIUM SERUM 3.6 MMOL/L (3.5-5.1); SODIUM LEVEL 133 MMOL/L (136-145)
[2025-03-07] MEDS: MIDODRINE 5 MG TAB PO ONE (13:17)
[2025-03-07] MEDS ORDERED: MAGNESIUM OXIDE 400MG TAB (MAG-OX) PO SCH (13:20)
[2025-03-07] MEDS: LR 1,000 ML IV ONE (13:27)
[2025-03-07] MEDS: diazePAM 5MG TABLET PO ONE (13:34)
[2025-03-07 14:00] VITALS: O2SAT 96
[2025-03-07 15:00] VITALS: O2SAT 96
[2025-03-07 16:00] VITALS: BP 117/56; TEMP 100.7; O2SAT 93; O2SAT 94
[2025-03-07] MEDS: KETOROLAC 30 MG/ML 1ML VIAL IV ONE (16:27)
[2025-03-07 16:51] LABS: KETONE, URINE AUTO RFX NEGATIVE (NEGATIVE); LEUKOCYTE ESTERASE UR AUTO RFX NEGATIVE (NEGATIVE); MUCUS, URINE RFX SMALL (NEGATIVE); NITRITE, URINE AUTO RFX NEGATIVE (NEGATIVE); RBC, URINE AUTO RFX 0 /HPF (0-3); SQUAM EPITHELIAL CELL UR AURFX 0 /HPF (0-6); WBC, URINE AUTO RFX 0 /HPF (0-3)
[2025-03-07 18:00] VITALS: O2SAT 95
[2025-03-07 19:18] LABS: BASO # 0.1 10^3/uL (0.0-0.2); BASO % 1.2 % (0.0-1.0); EOS % 0.5 % (0.0-3.0); HEMATOCRIT 31.8 % (42.0-52.0); HEMOGLOBIN 10.3 g/dl (13.5-17.5); MEAN CORPUSCULAR HGB CONC 32.4 g/dl (32.0-36.5); MEAN CORPUSCULAR VOLUME 83.2 fl (80.0-96.0); MONO # 0.6 10^3/uL (0.0-0.8); MONO % 8.5 % (2.0-8.0); NEUTROPHILS # 5.6 10^3/uL (1.5-8.5); NEUTROPHILS % 75.1 % (36.0-66.0); RED BLOOD COUNT 3.82 10^6/uL (4.30-6.10); WHITE BLOOD COUNT 7.4 10^3/uL (4.0-10.0)
[2025-03-07 19:19] LABS: PLATELET COUNT, AUTOMATED 68 10^3/uL (150-450)
[2025-03-07 19:25] LABS: ERYTHROCYTE SEDIMENTATION RATE 73 mm/hr (0-15)
[2025-03-07 19:30] LABS: INR 1.29; PROTHROMBIN TIME 16.4 SECONDS (12.5-14.5)
[2025-03-07 19:39] LABS: ALBUMIN 3.1 G/DL (3.2-5.2); BILIRUBIN,DIRECT 2.7 MG/DL (<0.4); BLOOD UREA NITROGEN 9 MG/DL (9-23); C REACTIVE PROTEIN QUANTITATIV 1.35 MG/DL (<1.0); CALCIUM LEVEL 8.1 MG/DL (8.5-10.1); CARBON DIOXIDE LEVEL 23 MMOL/L (20-31); CHLORIDE LEVEL 98 MMOL/L (98-107); CREATININE FOR GFR 0.81 MG/DL (0.70-1.30); GLOMERULAR FILTRATION RATE > 60.0 (>60); GLUCOSE, FASTING 142 MG/DL (60-100); MAGNESIUM LEVEL 1.8 MG/DL (1.8-2.4); POTASSIUM SERUM 3.7 MMOL/L (3.5-5.1); SODIUM LEVEL 131 MMOL/L (136-145); TOTAL PROTEIN 6.5 G/DL (5.7-8.2)
[2025-03-07 19:51] LABS: PROCALCITONIN 0.33 ng/ml
[2025-03-07 20:00] VITALS: BP 114/58; TEMP 99.6; O2SAT 14; O2SAT 97
[2025-03-08] VITALS (9 sets, daily range): BP systolic 106–128; BP diastolic 53–64; PULSE 130; TEMP 99.1–101.1; O2SAT 82–95
[2025-03-08] MEDS: chlordiazePOXIDE 25 MG CAP PO SCH (04:09)
[2025-03-08 05:08] LABS: HEMATOCRIT 29.5 % (42.0-52.0); HEMOGLOBIN 9.6 g/dl (13.5-17.5); MEAN CORPUSCULAR HEMOGLOBIN 27.6 pg (27.0-33.0); MEAN CORPUSCULAR HGB CONC 32.5 g/dl (32.0-36.5); MEAN CORPUSCULAR VOLUME 84.8 fl (80.0-96.0); RED BLOOD COUNT 3.48 10^6/uL (4.30-6.10); WHITE BLOOD COUNT 7.2 10^3/uL (4.0-10.0)
[2025-03-08 05:23] LABS: INR 1.39; PROTHROMBIN TIME 17.4 SECONDS (12.5-14.5)
[2025-03-08 05:25] LABS: PLATELET COUNT, AUTOMATED 64 10^3/uL (150-450)
[2025-03-08 05:40] LABS: ALKALINE PHOSPHATASE 338 U/L (40-129); ALT/SGPT 33 U/L (7.0-40); AST/SGOT 149 U/L (<34); BILIRUBIN,TOTAL 4.5 MG/DL (0.3-1.2); BLOOD UREA NITROGEN 10 MG/DL (9-23); CALCIUM LEVEL 8.2 MG/DL (8.5-10.1); CARBON DIOXIDE LEVEL 24 MMOL/L (20-31); CHLORIDE LEVEL 99 MMOL/L (98-107); CREATININE FOR GFR 0.85 MG/DL (0.70-1.30); GLOMERULAR FILTRATION RATE > 60.0 (>60); GLUCOSE, FASTING 118 MG/DL (60-100); MAGNESIUM LEVEL 1.7 MG/DL (1.8-2.4); SODIUM LEVEL 133 MMOL/L (136-145); TOTAL PROTEIN 5.9 G/DL (5.7-8.2)
[2025-03-08] MEDS: MAG SULF 1GM/100ML (MAG RUN) 1 GM in IV 1 EA IV ONE (08:09)
[2025-03-08] MEDS: IBUPROFEN 400MG TAB PO PRN (11:43)
[2025-03-09] VITALS (18 sets, daily range): BP systolic 102–138; BP diastolic 53–70; TEMP 98.2–101.3; O2SAT 91–98
[2025-03-09] MEDS: chlordiazePOXIDE 25 MG CAP PO SCH (05:18)
[2025-03-09 06:02] LABS: BASO # 0.1 10^3/uL (0.0-0.2); BASO % 1.2 % (0.0-1.0); EOS # 0.1 10^3/uL (0.0-0.5); EOS % 1.5 % (0.0-3.0); LYMPH # 0.9 10^3/uL (1.5-5.0); LYMPH % 14.6 % (24.0-44.0); MEAN CORPUSCULAR HEMOGLOBIN 27.5 pg (27.0-33.0); MEAN CORPUSCULAR HGB CONC 32.1 g/dl (32.0-36.5); MEAN CORPUSCULAR VOLUME 85.6 fl (80.0-96.0); MONO # 0.6 10^3/uL (0.0-0.8); MONO % 9.4 % (2.0-8.0); NEUTROPHILS # 4.3 10^3/uL (1.5-8.5); NEUTROPHILS % 72.4 % (36.0-66.0); RED BLOOD COUNT 3.27 10^6/uL (4.30-6.10); WHITE BLOOD COUNT 5.9 10^3/uL (4.0-10.0)
[2025-03-09 06:05] LABS: PLATELET COUNT, AUTOMATED 68 10^3/uL (150-450)
[2025-03-09 06:09] LABS: ALBUMIN 2.6 G/DL (3.2-5.2); ALKALINE PHOSPHATASE 306 U/L (40-129); ALT/SGPT 30 U/L (7.0-40); AST/SGOT 125 U/L (<34); BILIRUBIN,DIRECT 3.8 MG/DL (<0.4); BILIRUBIN,TOTAL 5.3 MG/DL (0.3-1.2); BLOOD UREA NITROGEN 8 MG/DL (9-23); CALCIUM LEVEL 8.2 MG/DL (8.5-10.1); CARBON DIOXIDE LEVEL 23 MMOL/L (20-31); CHLORIDE LEVEL 99 MMOL/L (98-107); CREATININE FOR GFR 0.83 MG/DL (0.70-1.30); GLOMERULAR FILTRATION RATE > 60.0 (>60); GLUCOSE, FASTING 137 MG/DL (60-100); MAGNESIUM LEVEL 1.5 MG/DL (1.8-2.4); POTASSIUM SERUM 4.5 MMOL/L (3.5-5.1); SODIUM LEVEL 130 MMOL/L (136-145); TOTAL PROTEIN 5.6 G/DL (5.7-8.2)
[2025-03-09] MEDS: POTASSIUM CHLORIDE 10MEQ SR TABLET PO SCH (09:00)
[2025-03-09] MEDS: LACTULOSE 20GM/30ML SYRUP UDC PO SCH (09:00)
[2025-03-09] MEDS: MAG SULF 1GM/100ML (MAG RUN) 1 GM in IV 1 EA IV SCH (09:21)
[2025-03-09] MEDS ORDERED: LACTULOSE 20GM/30ML SYRUP UDC PO PRN (17:40)
[2025-03-09] MEDS: NS (Normal Saline) 0.9% 1,000 ML IV ONE (18:06)
[2025-03-10] VITALS (25 sets, daily range): BP systolic 100–112; BP diastolic 49–58; TEMP 98.5–100.4; O2SAT 89–98
[2025-03-10 05:32] LABS: BASO # 0.1 10^3/uL (0.0-0.2); BASO % 1.1 % (0.0-1.0); EOS # 0.1 10^3/uL (0.0-0.5); EOS % 1.5 % (0.0-3.0); HEMATOCRIT 27.6 % (42.0-52.0); HEMOGLOBIN 8.7 g/dl (13.5-17.5); LYMPH # 0.9 10^3/uL (1.5-5.0); MEAN CORPUSCULAR HEMOGLOBIN 27.2 pg (27.0-33.0); MEAN CORPUSCULAR HGB CONC 31.5 g/dl (32.0-36.5); MEAN CORPUSCULAR VOLUME 86.3 fl (80.0-96.0); MONO # 0.7 10^3/uL (0.0-0.8); MONO % 11.1 % (2.0-8.0); NEUTROPHILS # 4.5 10^3/uL (1.5-8.5); NEUTROPHILS % 71.8 % (36.0-66.0); PLATELET COUNT, AUTOMATED 84 10^3/uL (150-450); WHITE BLOOD COUNT 6.2 10^3/uL (4.0-10.0)
[2025-03-10 06:00] LABS: ALBUMIN 2.4 G/DL (3.2-5.2); ALKALINE PHOSPHATASE 291 U/L (40-129); ALT/SGPT 28 U/L (7.0-40); AST/SGOT 98 U/L (<34); BILIRUBIN,DIRECT 4.1 MG/DL (<0.4); BILIRUBIN,TOTAL 5.6 MG/DL (0.3-1.2); BLOOD UREA NITROGEN 8 MG/DL (9-23); CALCIUM LEVEL 8.4 MG/DL (8.5-10.1); CARBON DIOXIDE LEVEL 23 MMOL/L (20-31); CHLORIDE LEVEL 101 MMOL/L (98-107); CREATININE FOR GFR 0.94 MG/DL (0.70-1.30); GLOMERULAR FILTRATION RATE > 90.0 (>60); GLUCOSE, FASTING 119 MG/DL (60-100); POTASSIUM SERUM 4.4 MMOL/L (3.5-5.1); SODIUM LEVEL 132 MMOL/L (136-145); TOTAL PROTEIN 5.2 G/DL (5.7-8.2)
[2025-03-10] MEDS: chlordiazePOXIDE 25 MG CAP PO SCH (06:35)
[2025-03-10 07:35] LABS: IRON (FE) 24 UG/DL (65-175); PERCENT SATURATION 11.7 % (19.7-50.0); TOTAL IRON BINDING CAPACITY 205 UG/DL (250-425)
[2025-03-10 07:37] LABS: FERRITIN 38.4 NG/ML (10.5-307.3); FOLATE > 24.00 NG/ML (>5.4)
[2025-03-10 07:42] LABS: VITAMIN B12 LEVEL > 2000 PG/ML (211-911)
[2025-03-10] MEDS: PANTOPRAZOLE 40MG TAB (PROTONIX) PO SCH (21:17)
[2025-03-11 03:31] VITALS: BP 105/54; TEMP 99.2; O2SAT 92
[2025-03-11 06:23] LABS: BASO # 0.1 10^3/uL (0.0-0.2); BASO % 1.4 % (0.0-1.0); EOS # 0.1 10^3/uL (0.0-0.5); EOS % 1.6 % (0.0-3.0); HEMATOCRIT 27.8 % (42.0-52.0); HEMOGLOBIN 8.6 g/dl (13.5-17.5); LYMPH % 15.8 % (24.0-44.0); MEAN CORPUSCULAR HEMOGLOBIN 27.2 pg (27.0-33.0); MEAN CORPUSCULAR HGB CONC 30.9 g/dl (32.0-36.5); MONO # 0.9 10^3/uL (0.0-0.8); MONO % 13.3 % (2.0-8.0); NEUTROPHILS # 4.3 10^3/uL (1.5-8.5); NEUTROPHILS % 67.4 % (36.0-66.0); PLATELET COUNT, AUTOMATED 100 10^3/uL (150-450); RED BLOOD COUNT 3.16 10^6/uL (4.30-6.10); WHITE BLOOD COUNT 6.4 10^3/uL (4.0-10.0)
[2025-03-11 06:58] LABS: BLOOD UREA NITROGEN 11 MG/DL (9-23); CALCIUM LEVEL 8.3 MG/DL (8.5-10.1); CARBON DIOXIDE LEVEL 24 MMOL/L (20-31); CHLORIDE LEVEL 103 MMOL/L (98-107); CREATININE FOR GFR 0.87 MG/DL (0.70-1.30); GLOMERULAR FILTRATION RATE > 90.0 (>60); GLUCOSE, FASTING 110 MG/DL (60-100); MAGNESIUM LEVEL 1.4 MG/DL (1.8-2.4); POTASSIUM SERUM 5.2 MMOL/L (3.5-5.1); SODIUM LEVEL 132 MMOL/L (136-145)
[2025-03-11 08:00] VITALS: BP 112/57; TEMP 98.6; O2SAT 95
[2025-03-11] MEDS: FERROUS GLUCONATE 324 MG TAB PO SCH (09:32)
[2025-03-11] MEDS: MAG SULF 1GM/100ML (MAG RUN) 1 GM in IV 1 EA IV SCH (09:32)
[2025-03-11 12:11] VITALS: BP 111/57; TEMP 98.5; O2SAT 93
[2025-03-11 19:50] VITALS: BP 103/55; TEMP 100.7; O2SAT 92
[2025-03-12 03:51] VITALS: BP 101/53; TEMP 97.5; O2SAT 92
[2025-03-12 07:50] VITALS: BP 102/56; TEMP 97.5; O2SAT 96
[2025-03-12] MEDS ORDERED: FERR32TA PO (08:04)
[2025-03-12 08:28] LABS: BASO # 0.1 10^3/uL (0.0-0.2); BASO % 1.8 % (0.0-1.0); EOS # 0.1 10^3/uL (0.0-0.5); EOS % 1.6 % (0.0-3.0); HEMATOCRIT 28.6 % (42.0-52.0); LYMPH # 1.1 10^3/uL (1.5-5.0); MEAN CORPUSCULAR HEMOGLOBIN 27.6 pg (27.0-33.0); MEAN CORPUSCULAR HGB CONC 31.5 g/dl (32.0-36.5); MEAN CORPUSCULAR VOLUME 87.7 fl (80.0-96.0); MONO # 0.9 10^3/uL (0.0-0.8); MONO % 14.3 % (2.0-8.0); NEUTROPHILS % 64.5 % (36.0-66.0); PLATELET COUNT, AUTOMATED 142 10^3/uL (150-450); RED BLOOD COUNT 3.26 10^6/uL (4.30-6.10); WHITE BLOOD COUNT 6.2 10^3/uL (4.0-10.0)
[2025-03-12 08:54] LABS: BLOOD UREA NITROGEN 13 MG/DL (9-23); CALCIUM LEVEL 8.1 MG/DL (8.5-10.1); CARBON DIOXIDE LEVEL 24 MMOL/L (20-31); CHLORIDE LEVEL 101 MMOL/L (98-107); CREATININE FOR GFR 0.91 MG/DL (0.70-1.30); GLOMERULAR FILTRATION RATE > 90.0 (>60); GLUCOSE, FASTING 112 MG/DL (60-100); POTASSIUM SERUM 4.6 MMOL/L (3.5-5.1); SODIUM LEVEL 132 MMOL/L (136-145)
[2025-03-12] MEDS ORDERED: LACT20EL PO (10:34)
[2025-03-12] MEDS ORDERED: POTA10CA70 PO (12:10)
== END 2025-03-12 13:32 | disposition home or self-care (01) | DRG 775 ==
LOC: M ED 21:41 → M ED INP 03-07 01:44 → M ICU 03-07 13:02 → M PCU 03-08 17:10
PROVIDERS: ADMIT Student in an Organized Health Care Education/Training Program; ATTEND Internal Medicine Nephrology
DX: F10.229 Alcohol dependence with intoxication, unspecified (principal); K83.1 Obstruction of bile duct; K76.6 Portal hypertension; D69.6 Thrombocytopenia, unspecified; I95.9 Hypotension, unspecified; E72.20 Disorder of urea cycle metabolism, unspecified; E83.42 Hypomagnesemia; E83.51 Hypocalcemia; K70.30 Alcoholic cirrhosis of liver without ascites; E83.119 Hemochromatosis, unspecified; E87.6 Hypokalemia; D64.9 Anemia, unspecified; K80.20 Calculus of gallbladder without cholecystitis without obstruction; F32.A Depression, unspecified; E87.1 Hypo-osmolality and hyponatremia; R51.9 Headache, unspecified; R09.02 Hypoxemia; F12.10 Cannabis abuse, uncomplicated; R26.89 Other abnormalities of gait and mobility; Z79.899 Other long term (current) drug therapy

== ENCOUNTER 2025-05-24 17:44 | Emergency (ER) | payer MEDICAID, OTHER ==
[~2025-05-24] VITALS: Ht 180.3 cm; Wt 80.8 kg
[~2025-05-24 17:44] MED LIST changes: +B-1100TA2 PO; +FERR32TA PO; +FURO20TA2 PO; +POTA-136 PO; +POTA10CA70 PO
[2025-05-24 18:47] LABS: BASO # 0.1 10^3/uL (0.0-0.2); BASO % 1.1 % (0.0-1.0); EOS % 0.4 % (0.0-3.0); HEMATOCRIT 30.3 % (42.0-52.0); HEMOGLOBIN 9.9 g/dl (13.5-17.5); LYMPH # 0.9 10^3/uL (1.5-5.0); LYMPH % 8.8 % (24.0-44.0); MEAN CORPUSCULAR HEMOGLOBIN 31.4 pg (27.0-33.0); MEAN CORPUSCULAR HGB CONC 32.7 g/dl (32.0-36.5); MEAN CORPUSCULAR VOLUME 96.2 fl (80.0-96.0); MONO # 0.5 10^3/uL (0.0-0.8); MONO % 5.2 % (2.0-8.0); NEUTROPHILS # 8.8 10^3/uL (1.5-8.5); NEUTROPHILS % 83.8 % (36.0-66.0); RED BLOOD COUNT 3.15 10^6/uL (4.30-6.10); WHITE BLOOD COUNT 10.5 10^3/uL (4.0-10.0)
[2025-05-24 18:48] LABS: PLATELET COUNT, AUTOMATED 63 10^3/uL (150-450)
[2025-05-24 19:01] LABS: INR 1.34; PROTHROMBIN TIME 16.9 SECONDS (12.5-14.5)
[2025-05-24 19:23] LABS: LIPASE 364 U/L (12-53)
[2025-05-24 19:51] LABS: ALKALINE PHOSPHATASE 270 U/L (40-129); ALT/SGPT 42 U/L (7.0-40); AST/SGOT 241 U/L (<34); BILIRUBIN,DIRECT 6.1 MG/DL (<0.4); BILIRUBIN,TOTAL 8.9 MG/DL (0.3-1.2); BLOOD UREA NITROGEN 11 MG/DL (9-23); CALCIUM LEVEL 8.1 MG/DL (8.5-10.1); CARBON DIOXIDE LEVEL 18 MMOL/L (20-31); CHLORIDE LEVEL 102 MMOL/L (98-107); ETHYL ALCOHOL (ETHANOL) 0.483 % (0.000-0.010); GLOMERULAR FILTRATION RATE > 90.0 (>60); GLUCOSE, FASTING 111 MG/DL (60-100); POTASSIUM SERUM 2.9 MMOL/L (3.5-5.1); SODIUM LEVEL 141 MMOL/L (136-145); TOTAL PROTEIN 6.1 G/DL (5.7-8.2)
[2025-05-24] MEDS: KCL 10MEQ/100ML SWI (KRUN) 10 MEQ in IV 1 EA IV ONE (20:45)
[2025-05-24] MEDS: POTASSIUM CHLORIDE 10MEQ SR TABLET PO ONE (20:45)
[2025-05-24] MEDS ORDERED: LORazepam 2 MG TAB PO PRN (21:00)
[2025-05-24 21:16] LABS: MAGNESIUM LEVEL 1.6 MG/DL (1.8-2.4)
[2025-05-24] MEDS: THIAMINE 100 MG TAB PO SCH (21:22)
[2025-05-24] MEDS: NICOTINE 21 MG/24 HR 1 EA TRANSDERMAL TD ONE (21:23)
[2025-05-24 23:16] LABS: BASO # 0.1 10^3/uL (0.0-0.2); BASO % 0.9 % (0.0-1.0); EOS % 0.2 % (0.0-3.0); HEMATOCRIT 27.2 % (42.0-52.0); HEMOGLOBIN 9.1 g/dl (13.5-17.5); LYMPH # 1.3 10^3/uL (1.5-5.0); LYMPH % 14.2 % (24.0-44.0); MEAN CORPUSCULAR HEMOGLOBIN 32.5 pg (27.0-33.0); MEAN CORPUSCULAR HGB CONC 33.5 g/dl (32.0-36.5); MEAN CORPUSCULAR VOLUME 97.1 fl (80.0-96.0); MONO # 0.5 10^3/uL (0.0-0.8); MONO % 5.3 % (2.0-8.0); NEUTROPHILS # 7.3 10^3/uL (1.5-8.5); NEUTROPHILS % 78.5 % (36.0-66.0); WHITE BLOOD COUNT 9.2 10^3/uL (4.0-10.0)
[2025-05-24 23:32] LABS: PLATELET COUNT, AUTOMATED 45 10^3/uL (150-450)
[2025-05-24 23:36] LABS: SALICYLATE LEVEL < 3.0 MG/DL (<30)
[2025-05-24] MEDS: MAG SULF 1GM/100ML (MAG RUN) 1 GM in IV 1 EA IV ONE (23:57)
[2025-05-24] MEDS: MAGNESIUM OXIDE 400 MG TAB PO ONE (23:57)
[2025-05-25 03:26] LABS: AMPHETAMINES LEVEL URINE NEGATIVE (NEGATIVE); BARBITURATES URINE NEGATIVE (NEGATIVE); BENZODIAZEPINES URINE NEGATIVE (NEGATIVE); CANNABINOIDS URINE NEGATIVE (NEGATIVE); COCAINE METABOLITE URINE NEGATIVE (NEGATIVE); METHADONE URINE NEGATIVE (NEGATIVE); OPIATES URINE NEGATIVE (NEGATIVE); PHENCYCLIDINE URINE NEGATIVE (NEGATIVE)
[2025-05-25 04:15] VITALS: TEMP 99.7; O2SAT 98
[2025-05-25 04:18] VITALS: BP 95/51
[2025-05-25] MEDS ORDERED: FOLIC ACID 1 MG TAB PO SCH (09:00)
[2025-05-25] MEDS ORDERED: MULTIVITAMINS/MINERALS THERAP 1 TAB PO SCH (09:00)
== END 2025-05-25 04:32 | disposition short-term general hospital (02) ==
LOC: M ED 17:44 → EDBD 17:44 → M ED 05-25 04:32
DX: F10.120 Alcohol abuse with intoxication, uncomplicated (principal); I45.81 Long QT syndrome; I44.30 Unspecified atrioventricular block; K70.30 Alcoholic cirrhosis of liver without ascites; F17.290 Nicotine dependence, other tobacco product, uncomplicated; Z79.899 Other long term (current) drug therapy; Z79.810 Long term (current) use of selective estrogen receptor modulators (SERMs)
CPT/HCPCS: 80048; 80076; 80143; 80307; 82077; 82140; 83690; 83735; 85025; 85049; 85055; 85610; 86850; 86900; 86901; 93005; 93041; 96365; 96366; 99285; J3475

== ENCOUNTER → 2025-08-03 | Outpatient (CLI) | payer OTHER ==
[2025-08-03 14:50] LABS: BASO # 0.1 10^3/uL (0.0-0.2); BASO % 1.3 % (0.0-1.0); EOS # 0.2 10^3/uL (0.0-0.5); EOS % 3.3 % (0.0-3.0); LYMPH # 1.1 10^3/uL (1.5-5.0); LYMPH % 19.3 % (24.0-44.0); MONO # 0.4 10^3/uL (0.0-0.8); MONO % 6.5 % (2.0-8.0); NEUTROPHILS # 3.8 10^3/uL (1.5-8.5); NEUTROPHILS % 69.1 % (36.0-66.0); PLATELET COUNT, AUTOMATED 124 10^3/uL (150-450)
[2025-08-03 15:15] LABS: ALT/SGPT 22 U/L (7.0-40); AST/SGOT 56 U/L (<34); CALCIUM LEVEL 8.9 MG/DL (8.5-10.1); CARBON DIOXIDE LEVEL 23 MMOL/L (20-31); CHLORIDE LEVEL 109 MMOL/L (98-107); CREATININE FOR GFR 0.75 MG/DL (0.70-1.30); GLOMERULAR FILTRATION RATE > 90.0 (>60); IRON (FE) 75 UG/DL (65-175); MAGNESIUM LEVEL 1.5 MG/DL (1.8-2.4); PERCENT SATURATION 26.7 % (19.7-50.0); POTASSIUM SERUM 4.3 MMOL/L (3.5-5.1); SODIUM LEVEL 144 MMOL/L (136-145)
[2025-08-03 15:22] LABS: VITAMIN B12 LEVEL > 2000 PG/ML (211-911)
== END ==
LOC: M LAB 13:24
PROVIDERS: ATTEND Internal Medicine
DX: K70.31 Alcoholic cirrhosis of liver with ascites (principal)

== ENCOUNTER → 2025-11-21 | Outpatient (REF) | payer OTHER ==
[~2025-11-21] MED LIST changes: -BACTDSTA PO; +POTA-232 PO; -POTA10TA67 PO; +SULF-8 PO
== END ==
LOC: M LAB REF 12:03
PROVIDERS: ATTEND Physician Assistant Medical
DX: K70.31 Alcoholic cirrhosis of liver with ascites (principal)